=== PATIENT | female | born 1950 | race Caucasian/White ===

== ENCOUNTER → 2017-07-06 | Outpatient (CLI) | payer MEDICARE ==
[~2017-07-06] MED LIST: ACE325 PO; ALB0.5 INH; ASP325 PO; BACDS PO; DAR100 PO; MULT-1335 PO; PHENA100 PO; STEROID INHALER INH; [UNRECOGNIZED DRUG - OTHER] PO
--- NOTE | 2017-07-06 11:53 | EKG ---
FACILITY: [facility] - [place] PATIENT NAME: JEEVAN YANEZ : [id number] MR: [id number] V: [id number] EXAM DATE: ORDERING PHYSICIAN: JOSÉ LUIS WARNER TECHNOLOGIST: GRAHAM Sandoval Reason : J44.9 Blood Pressure : / mmHG Vent. Rate : 088 BPM Atrial Rate : 088 BPM P-R Int : 126 ms QRS Dur : 068 ms QT Int : 350 ms P-R-T Axes : 088 089 083 degrees QTc Int : 423 ms Normal sinus rhythm Normal ECG No previous ECGs available Confirmed by MERCY SEN ([id number]) on 07/06/2017 2:59:41 PM Referred By: Confirmed By:MERCY SEN
--- NOTE | 2017-07-06 12:44 | RADIOLOGY IMAGING REPORT ---
FACILITY: [facility] - [place] PATIENT NAME: Emma Henriquez : 1950 MR: [id number] V: [id number] EXAM DATE: ORDERING PHYSICIAN: JOSÉ LUIS WARNER TECHNOLOGIST: Location: [facility] - [place] Patient: Emma Henriquez : 1950 Visit/Account:[id number] Date of Sevice: 07/06/2017 2 VIEWS CHEST INDICATION: Preop evaluation. History of cough and smoking. COMPARISON: 05/28/2013. FINDINGS: Cardiomediastinal silhouette and pulmonary vessels within normal limits. Emphysematous changes are again present. No focal area of consolidation. There is minimal haziness in the right costophrenic angle region. There is no pneumothorax or pleural effusion. No nodule. Upper abdomen is unremarkable. No acute bony abnormality. IMPRESSION: 1. There is minimal haziness in the right costophrenic angle region of the lungs. This nonspecific an d could be due to atelectasis or early infiltrate. The lungs are otherwise clear. Report Dictated By: Taj Madrigal at 07/06/2017 12:37 PM Report E-Signed By: Taj Madrigal at 07/06/2017 12:40 PM WSN:[id number]
== END ==
LOC: RESP 11:35
PROVIDERS: ATTEND Nurse Practitioner Psychiatric/Mental Health
DX: J44.9 Chronic obstructive pulmonary disease, unspecified (principal)
CPT/HCPCS: 71046; 93005

== ENCOUNTER → 2017-07-24 | Outpatient (CLI) | payer MEDICARE, MEDICAID ==
[~2017-07-24] MED LIST changes: +ALB18R INH; +BUDE10.2 INH; +CETI-184 PO; +FEXO-67 PO; +GABA-549 PO; +LISI5TAB25 PO; +MELO-205 PO; +MIRT7.5T2 PO; +MONT10TA PO
== END ==
LOC: RESP 01:15
PROVIDERS: ATTEND Nurse Practitioner Psychiatric/Mental Health
DX: J98.4 Other disorders of lung (principal)
CPT/HCPCS: 94060; 94726; 94729

== ENCOUNTER → 2018-04-11 | Outpatient (CLI) | payer MEDICARE, MEDICAID ==
--- NOTE | 2018-04-11 13:20 | RADIOLOGY IMAGING REPORT ---
FACILITY: [facility] PATIENT NAME: Emma Henriquez : 1950 MR: [id number] V: [id number] EXAM DATE: ORDERING PHYSICIAN: JOSÉ LUIS WARNER TECHNOLOGIST: Location: [facility] Patient: Emma Henriquez : 1950 Visit/Account:[id number] Date of Sevice: 04/11/2018 CT CHEST W/O CONTRAST History: Shortness of breath, worse on oxygen at night TECHNIQUE: Contiguous axial images were performed through the chest to the level of the adrenal gla nds. No IV contrast was administered. Coronal and sagittal reformatting was also performed.Dose Lower ing Technique One of the following dose optimization techniques was utilized in the performance of this exam: Autom ated exposure control; adjustment of the mA and/or kV according to the patient's size; or use of an i terative reconstruction technique. Specific details can be referenced in the facility's radiology C T exam operational policy. COMPARISON STUDIES: Two-view chest July 06, 2017. Lungs / Pleura: There is moderate diffuse centrilobular emphysema throughout the lungs and mild meir ear stranding the lung bases likely represents scarring. There is mild thickening versus retained secretions along the anterior and posterior gibson of the bro nchus intermedius There is no evidence of pulmonary nodules are focal infiltrates or pleural effusions. Mediastinum/nodes: There are small mediastinal lymph nodes present although none appear pathological ly enlarged by size criteria Heart and vessels: There moderate atherosclerotic calcifications of the thoracic aorta and branch ve ssels Musculoskeletal / Body wall: There is an S-shaped scoliosis of the thoracic spine with moderate spo ndylotic changes there is a mild compression fracture of the T9 vertebral body Upper abdomen: Visualized abdominal viscera negative. IMPRESSION: There moderate diffuse central and emphysematous changes throughout the lungs. Mild scarring in the lung bases. There is mild thickening versus retained secretions along the anterior and posterior gibson of the bro nchus intermedius. Clinical correlation needed Moderate atherosclerotic disease S-shaped scoliosis of the thoracic spine with moderate spondylotic changes and a mild compression fra cture of T9 Report Dictated By: Leah Marshall MD at 04/11/2018 1:04 PM Report E-Signed By: Leah Marshall MD at 04/11/2018 1:14 PM WSN:[email or web address]
== END ==
LOC: CT 00:59
PROVIDERS: ATTEND Nurse Practitioner Psychiatric/Mental Health
DX: J43.9 Emphysema, unspecified (principal); I25.10 Atherosclerotic heart disease of native coronary artery without angina pectoris
CPT/HCPCS: 71250

== ENCOUNTER 2018-06-02 14:35 | Inpatient (IN) | payer MEDICARE, MEDICAID ==
[~2018-06-02] VITALS: Ht 144.8 cm; Wt 32.2 kg
[2018-06-02] VITALS (14 sets, daily range): BP systolic 81–135; BP diastolic 60–87
[~2018-06-02 14:35] MED LIST changes: -CYCL-277 PO; -FLUO-176 PO
[2018-06-02] MEDS ORDERED: NS(*) 0.9% 1000 ML BAG 1,000 ML IV ONE (14:38)
[2018-06-02] MEDS ORDERED: ALBUTEROL/IPRATROPIUM 3 ML NEB NEB ONE (14:40)
[2018-06-02] MEDS ORDERED: methylPREDNIS SUCC 125 MG/2ML IVP ONE (14:40)
--- NOTE | 2018-06-02 14:44 | ER Report ---
History and Physical Time Seen By MD: 14:35 HPI/ROS CHIEF COMPLAINT: Shortness of breath HISTORY OF PRESENT ILLNESS: 67-year-old female patient presents to emergency room with complaint of shortness of breath. Patient states this been going on for the past week. She states that shortness of breath has seemed to be getting worse over that time period. She states that she has not had much of an appetite. She states she still is smoking, is unable to smoke a few cigarettes a day. Patient denies any nausea, vomiting or diarrhea, however she states that she's not had much of an appetite for the past week. Patient states she does have some abdominal pain. She states she is not taking any medication for this. REVIEW OF SYSTEMS: Respiratory: As noted above Cardiovascular: No chest pain, no palpitations. Gastrointestinal: As noted above Musculoskeletal: No back pain. Allergies: Coded Allergies: Codeine (Verified Allergy, Intermediate, NAUSEA, VOMITING, ITHCHING, HIVES, 10/02/09) Hydrocodone (Verified Allergy, Intermediate, NAUSEA, VOMITING, ITCHING, HIVES, 10/02/09) Mold Extracts (Verified Allergy, Intermediate, 10/02/09) Oxycodone (Verified Allergy, Intermediate, NAUSEA, VOMITING, ITCHING, HIVES, 10/02/09) Penicillin G (Verified Allergy, Intermediate, NAUSEA, VOMITING, ITCHING, D IZZINESS, 10/02/09) Levofloxacin (Verified Allergy, Mild, NAUSEA AND ITCHING, 10/02/09) Home Meds Reported Medications Fluoxetine Hcl (FLUOXETINE HCL) 10 Mg Capsule, 1 CAP PO DAILY 06/02/18 Gabapentin (GABAPENTIN) 300 Mg Capsule, 100 MG PO TID, CAPSULE 07/26/17 Meloxicam (MELOXICAM) 7.5 Mg Tablet, 7.5 MG PO QDAY 07/26/17 Albuterol Sulfate (VENTOLIN HFA) 18 Gm Inh, 2 PUFF INH QID, INH 07/26/17 Budesonide/Formoterol Fumarate (SYMBICORT 160-4.5 MCG INHALER) 10.2 Gm Inh, 10.2 GM INH BID, INH 07/26/17 Mirtazapine (MIRTAZAPINE) 7.5 Mg Tablet, 7.5 MG PO 07/26/17 Lisinopril (LISINOPRIL) 5 Mg Tablet, 5 MG PO QDAY, TAB 07/26/17 Fexofenadine Hcl (NICOLÁS ALLERGY) 180 Mg Tablet, 180 MG PO QDAY 07/26/17 Cetirizine Hcl (CETIRIZINE HCL) 10 Mg Tab.chew, 10 MG PO QDAY, TAB.CHEW 07/26/17 Montelukast Sodium (SINGULAIR) 10 Mg Tablet, 1 TAB PO QDAY, TAB 07/26/17 Multivitamins W-Minerals (Multiple Vitamin) 1 Tab Tablet, 1 TAB PO DAILY, 0 Refills 10/02/09 Albuterol Sulfate (Albuterol Inh Conc) 2.5 Mg/0.5 Ml Nebu, 2.5 MG INH 2 PUFFS QID, 0 Refills DILUTE BEFORE USING 10/02/09 Acetaminophen (Tylenol) 325 Mg Tab, 650 MG PO BID, 0 Refills 10/02/09 Discontinued Reported Medications Aspirin (Aspirin) 325 Mg Tab, 325 MG PO BID, 0 Refills 10/02/09 Past Medical/Surgical History Patient has a past medical history of bone spurs on neck, migraine, irregular heartbeat, hypertension, asthma, emphysema, COPD, left lower quadrant abdominal pain, urinary incontinence, arthritis, fractures, back pain, bruises easily, alcohol use, weight loss, depression. Patient has a surgical history of hysterectomy, back surgery 2, carpal tunnel release on the right, lumbar fusion. Reviewed Nurses Notes: Yes Hx Smoking: Yes (SMOKES 1 AND 1/2 PACKS CIGARETTES PER DAY) Constitutional Vital Sign - Last 24 Hours 06/02/18 06/02/18 06/02/18 06/02/18 14:31 14:35 14:37 14:50 Temp 99.3 Pulse 135 142 135 Resp 20 29 B/P (MAP) 140/103 140/103 (115) Pulse Ox 90 90 O2 Delivery Nasal Cannula 06/02/18 06/02/18 06/02/18 06/02/18 15:00 15:05 15:15 15:15 Pulse 141 121 Resp 24 26 B/P (MAP) 139/101 (114) Pulse Ox 89 91 O2 Delivery Nasal Cannula O2 Flow Rate 2.0 06/02/18 06/02/18 06/02/18 06/02/18 15:20 15:30 15:35 15:50 Pulse 131 130 133 Resp 18 18 24 B/P (MAP) 151/100 (117) Pulse Ox 96 83 83 06/02/18 06/02/18 06/02/18 06/02/18 16:00 16:04 16:05 16:20 Pulse 147 146 Resp 32 37 B/P (MAP) 211/138 (162) Pulse Ox 95 96 O2 Flow Rate 3.0 06/02/18 16:23 B/P (MAP) 117/80 (92) Physical Exam General Appearance: The patient is alert, has no immediate need for airway protection and no current signs of toxicity. Respiratory: Chest is non tender, lungs are diminished to auscultation. Cardiac: regular rate and rhythm Gastrointestinal: Abdomen is soft and generalized tenderness, no masses, bowel sounds normal. Musculoskeletal: Neck: Neck is supple and non tender. Extremities have full range of motion and are non tender. Skin: No rashes or lesions. DIFFERENTIAL DIAGNOSIS: After history and physical exam differential diagnosis was considered for shortness of breath including but not limited to pulmonary infectious process, COPD, asthma, pulmonary embolus and congestive heart failure. Medical Decision Making Data Points Result Diagram: 06/02/18 1508 06/02/18 1508 Laboratory Hematology Test 06/02/18 14:38 06/02/18 15:08 06/02/18 17:34 Blood Gas Puncture Site Right radial Blood Gas Patient Temperature 99.3 DEGREES Arterial Blood pH 7.38 (7.35-7.45) Arterial Blood Partial Pressure CO2 33 mmHg (32-37) Arterial Blood Partial Pressure O2 62 mmHg (60-80) Arterial Blood HCO3 20 mmol/L (20-26) Arterial Blood Oxygen Saturation 91 % (92-100) Arterial Blood Base Excess -6.0 mmol/L Carlos Test Acceptable Oxygen Liters/Minute 29 Red Blood Count 5.09 M/uL (4.17-5.56) Mean Corpuscular Volume 95.2 fL (80.0-96.0) Mean Corpuscular Hemoglobin 33.1 pg (26.0-33.0) Mean Corpuscular Hemoglobin Concent 34.8 g/dL (32.0-36.0) Red Cell Distribution Width 13.4 % (11.5-14.5) Mean Platelet Volume 7.4 fL (7.2-11.1) Neutrophils (%) (Auto) 86.1 % (39.4-72.5) Lymphocytes (%) (Auto) 3.3 % (17.6-49.6) Monocytes (%) (Auto) 10.4 % (4.1-12.4) Eosinophils (%) (Auto) 0.0 % (0.4-6.7) Basophils (%) (Auto) 0.2 % (0.3-1.4) Nucleated RBC Relative Count (auto) 0.1 /100WBC Neutrophils # (Auto) 9.1 K/uL (2.0-7.4) Lymphocytes # (Auto) 0.3 K/uL (1.3-3.6) Monocytes # (Auto) 1.1 K/uL (0.3-1.0) Eosinophils # (Auto) 0.0 K/uL (0.0-0.5) Basophils # (Auto) 0.0 K/uL (0.0-0.1) Nucleated RBC Absolute Count (auto) 0.01 K/uL Sodium Level 128 mmol/L (137-145) Potassium Level 4.4 mmol/L (3.5-5.0) Chloride Level 94 mmol/L (98-107) Carbon Dioxide Level 21 mmol/L (22-31) Blood Urea Nitrogen 12 mg/dl (7-18) Creatinine 0.40 mg/dl (0.52-1.04) Glomerular Filtration Rate Calc > 60.0 Random Glucose 100 mg/dl (75-110) Lactate 1.1 mmol/L (0.7-2.1) Calcium Level 9.7 mg/dl (8.4-10.2) Total Bilirubin 1.0 mg/dl (0.2-1.3) Aspartate Amino Transf (AST/SGOT) 36 U/L (0-35) Alanine Aminotransferase (ALT/SGPT) 41 U/L (0-56) Alkaline Phosphatase 81 U/L (0-126) B-Type Natriuretic Peptide 297 pg/ml (0-100) Total Protein 7.3 g/dl (6.3-8.2) Albumin 4.4 g/dl (3.5-5.0) Troponin I 0.074 ng/ml Chemistry Test 06/02/18 14:38 06/02/18 15:08 06/02/18 17:34 Blood Gas Puncture Site Right radial Blood Gas Patient Temperature 99.3 DEGREES Arterial Blood pH 7.38 (7.35-7.45) Arterial Blood Partial Pressure CO2 33 mmHg (32-37) Arterial Blood Partial Pressure O2 62 mmHg (60-80) Arterial Blood HCO3 20 mmol/L (20-26) Arterial Blood Oxygen Saturation 91 % (92-100) Arterial Blood Base Excess -6.0 mmol/L Carlos Test Acceptable Oxygen Liters/Minute 29 White Blood Count 10.6 k/uL (4.5-11.0) Red Blood Count 5.09 M/uL (4.17-5.56) Hemoglobin 16.8 g/dL (12.0-16.0) Hematocrit 48.4 % (34.0-47.0) Mean Corpuscular Volume 95.2 fL (80.0-96.0) Mean Corpuscular Hemoglobin 33.1 pg (26.0-33.0) Mean Corpuscular Hemoglobin Concent 34.8 g/dL (32.0-36.0) Red Cell Distribution Width 13.4 % (11.5-14.5) Platelet Count 201 K/uL (150-450) Mean Platelet Volume 7.4 fL (7.2-11.1) Neutrophils (%) (Auto) 86.1 % (39.4-72.5) Lymphocytes (%) (Auto) 3.3 % (17.6-49.6) Monocytes (%) (Auto) 10.4 % (4.1-12.4) Eosinophils (%) (Auto) 0.0 % (0.4-6.7) Basophils (%) (Auto) 0.2 % (0.3-1.4) Nucleated RBC Relative Count (auto) 0.1 /100WBC Neutrophils # (Auto) 9.1 K/uL (2.0-7.4) Lymphocytes # (Auto) 0.3 K/uL (1.3-3.6) Monocytes # (Auto) 1.1 K/uL (0.3-1.0) Eosinophils # (Auto) 0.0 K/uL (0.0-0.5) Basophils # (Auto) 0.0 K/uL (0.0-0.1) Nucleated RBC Absolute Count (auto) 0.01 K/uL Glomerular Filtration Rate Calc > 60.0 Lactate 1.1 mmol/L (0.7-2.1) Calcium Level 9.7 mg/dl (8.4-10.2) Total Bilirubin 1.0 mg/dl (0.2-1.3) Aspartate Amino Transf (AST/SGOT) 36 U/L (0-35) Alanine Aminotransferase (ALT/SGPT) 41 U/L (0-56) Alkaline Phosphatase 81 U/L (0-126) B-Type Natriuretic Peptide 297 pg/ml (0-100) Total Protein 7.3 g/dl (6.3-8.2) Albumin 4.4 g/dl (3.5-5.0) Troponin I 0.074 ng/ml Microbiology Microbiology Date/Time Source Procedure Growth Status 06/02/18 17:17 Sputum Gram Stain - Final Resulted 06/02/18 17:17 Sputum Sputum Culture Pending Resulted EKG/Imaging EKG Interpretation 12 lead EKG: Rhythm: Sinus tachycardia Vesper: normal QRS: normal ST segments: Nonspecific ST abnormality Imaging Examination: CHEST SINGLE AP Comparison: 04/11/2018 and earlier. History: shortness of breath Findings: Chronic pulmonary hyperexpansion and interstitial thickening. No new or enlarging consolidation, nodule, or definite evidence of acute peribronchial inflammation. No pneumothorax, edema, or effusion. Cardiac silhouette size is within normal limits. Tortuous and atherosclerotic aorta as before. Osseous structures are intact. IMPRESSION: Chronic changes with no evidence of superimposed acute cardiopulmonary disease. Report Dictated By: Bhupinder Valentin MD at 06/02/2018 4:21 PM Report E-Signed By: Bhupinder Valentin MD at 06/02/2018 4:23 PM ED Course/Re-evaluation ED Course Patient was medicated exam room, history and physical were obtained. Differential diagnoses were considered. On examination lungs are very diminished with expiratory wheezes. An EKG, chest x-ray, CBC, CMP, troponin were done. With patient having start time breathing a ABG was also performed. Lab results were unremarkable. Patient had a normal white count, troponin was indeterminate at 0.055. Chest x-ray showed no acute cardiopulmonary processes. We did do an extended nebulizer using DuoNeb over 40 minutes. Resting the bath patient became very anxious, stating that she did not feel that she could breathe with the mask on. Patient received a 1 mg dose of Ativan at that time. Patient did calm down relaxer was able to fall asleep. Patient was placed on in tidal CO2 to continue to monitor that. She maintained between 25 and 30 on that. I discussed the case with Dr. Ledy Mcmullen, hospitalist, who wanted a repeat troponin before decid ing whether to admit to the hospital. She did come down to the emergency room and evaluated the patient here. The repeat troponin was 0.074. I discussed this with Dr. Mcmullen who agreed to accept the patient for admission. Patient will be admitted to ICU for close monitoring. I discussed this with the patient's family, Amrik Tavarez . He states that he is the patient's power of insurance defense attorney and he also mentioned that he did not feel the patient would want to be intubated. I did discuss this with Dr. Mcmullen. Decision to Disposition Date: Jun 02, 2018 Decision to Disposition Time: 18:14 Depart Departure Latest Vital Signs Vital Signs Date Time Temp Pulse Resp B/P (MAP) Pulse Ox O2 Delivery O2 Flow Rate FiO2 06/02/18 16:23 117/80 (92) 06/02/18 16:20 146 37 96 06/02/18 16:04 3.0 06/02/18 15:15 Nasal Cannula 06/02/18 14:31 99.3 Impression: Primary Impression: COPD exacerbation Condition: Condition Unchanged Disposition: Admitted from ER Referrals: JOSÉ LUIS WARNER (PCP) SIER[facility] SINGLETARY Jun 02, 2018 14:44
--- NOTE | 2018-06-02 15:04 | EKG ---
FACILITY: [facility] PATIENT NAME: JEEVAN YANEZ : [id number] MR: [id number] V: [id number] EXAM DATE: ORDERING PHYSICIAN: SIERRA SINGLETARY TECHNOLOGIST: GRAHAM Sandoval Reason : RESPIRATORY Blood Pressure : / mmHG Vent. Rate : 133 BPM Atrial Rate : 066 BPM P-R Int : 000 ms QRS Dur : 068 ms QT Int : 386 ms P-R-T Axes : 000 248 084 degrees QTc Int : 574 ms Supraventricular tachycardia Nonspecific ST and T wave abnormality Abnormal ECG Confirmed by CESIA BALTAZAR ([id number]) on 06/02/2018 3:56:30 PM Referred By: Confirmed By:CESIA BALTAZAR
[2018-06-02 15:22] LABS: PLATELET COUNT, AUTOMATED 201 K/uL (150-450)
[2018-06-02] MEDS ORDERED: LORazepam 2 MG/ML VIAL IVP ONE (15:50)
[2018-06-02] MEDS ORDERED: AZITHROMYCIN(*) 500 MG 500 MG in NS(*) 0.9% 250 ML BAG 250 ML IVPB ONE (16:15)
--- NOTE | 2018-06-02 16:27 | RADIOLOGY IMAGING REPORT ---
FACILITY: [facility] PATIENT NAME: Emma Henriquez : 1950 MR: [id number] V: [id number] EXAM DATE: ORDERING PHYSICIAN: SIERRA SINGLETARY TECHNOLOGIST: Location: [facility] Patient: Emma Henriquez : 1950 Visit/Account:[id number] Date of Sevice: 06/02/2018 Examination: CHEST SINGLE AP Comparison: 04/11/2018 and earlier. History: shortness of breath Findings: Chronic pulmonary hyperexpansion and interstitial thickening. No new or enlarging consolida tion, nodule, or definite evidence of acute peribronchial inflammation. No pneumothorax, edema, or ef fusion. Cardiac silhouette size is within normal limits. Tortuous and atherosclerotic aorta as before . Osseous structures are intact. IMPRESSION: Chronic changes with no evidence of superimposed acute cardiopulmonary disease. Report Dictated By: Bhupinder Valentin MD at 06/02/2018 4:21 PM Report E-Signed By: Bhupinder Valentin MD at 06/02/2018 4:23 PM WSN:[id number]
[2018-06-02] MEDS ORDERED: FLUO-176 PO (17:36)
[2018-06-02] MEDS ORDERED: cefTRIAXone(*) 1 GM VIAL 1 GM in NS(*) 0.9% 100 ML MINI-BAG 100 ML IVPB ONE (17:50)
[2018-06-02] MEDS ORDERED: ALBUTEROL 2.5 MG/3 ML NEB NEB PRN (20:00)
[2018-06-02] MEDS: NS(*) 0.9% 1000 ML BAG 1,000 ML IV PRN (20:42)
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
[2018-06-02] MEDS: methylPREDNIS SUCC 125 MG/2ML IVP SCH (20:49)
[2018-06-02] MEDS ORDERED: CYCL-277 PO (21:00)
[2018-06-02] MEDS: MONTELUKAST SODIUM 10 MG TAB PO SCH (21:26)
[2018-06-02] MEDS: GABAPENTIN 300 MG CAP PO SCH (21:26)
[2018-06-02] MEDS: ALBUTEROL/IPRATROPIUM 3 ML NEB NEB SCH (23:55)
[2018-06-03] VITALS (42 sets, daily range): BP systolic 85–150; BP diastolic 60–101; Ht 144.8 cm; Wt 32.2 kg
[2018-06-03] MEDS: methylPREDNIS SUCC 125 MG/2ML IVP SCH ×4 (02:15→20:47)
[2018-06-03] MEDS: NS(*) 0.9% 1000 ML BAG 1,000 ML IV PRN ×2 (04:07→20:48)
[2018-06-03 04:51] LABS: PLATELET COUNT, AUTOMATED 154 K/uL (150-450)
[2018-06-03] MEDS: ALBUTEROL/IPRATROPIUM 3 ML NEB NEB SCH (06:04)
[2018-06-03] MEDS ORDERED: LEVALBUTEROL 0.63 MG/3 ML NEB NEB PRN (07:45)
--- NOTE | 2018-06-03 08:01 | Hospitalist Progress Note ---
Subjective Progress Notes Subjective She reports feeling "a little better" as compared to yesterday. Physical Exam Vital Signs Date Time Temp Pulse Resp B/P (MAP) Pulse Ox O2 Delivery O2 Flow Rate FiO2 06/03/18 06:30 114 18 106/70 (82) 90 Oxy Mask 4.0 06/03/18 05:00 99.5 Intake and Output 06/03/18 07:00 Intake Total 961 ml Output Total 690 ml Balance 271 ml Intake Oral 100 ml IV Total 861 ml Output Urine Total 690 ml General Appearance: Alert, Awake Cardiovascular: No Edema, Other (Regular slightly tachycardic with distant tones) Respiratory: Other (greatly diminished breath sounds bilaterally with prolonged expiratory phase) GI: Soft and Non-Tender Extremities: Warm, Perfused Integumentary: Generalized Fragile Skin Psych: Alert & Oriented X3 Result Diagram: 06/03/1844206/03/18442 Assessment and Plan Problems: (1) COPD exacerbation Status: Acute Assessment & Plan: Currently on IV azithromycin, ceftriaxone, Solu-Medrol. Will switch from Duo-Neb and Albuterol to Xoepnex as she has some persistent tachycardia. Continue supplemental oxygen as well. She has shown some slight improvements. Based on previous PFTs and CXR, she has quite advanced/severe COPD. (2) Depression Status: Chronic Assessment & Plan: She filled an RX for fluoxetine, but states she does not take it. (3) History of lumbar fusion Status: Resolved Assessment & Plan: She has some chronic back pain related to this and uses low dose Flexeril. Exam Sepsis Risk: Sepsis Risk CATALINA MISTRY MD Jun 03, 2018 08:01
[2018-06-03] MEDS: ENOXAPARIN 30 MG/0.3 ML SYR SC SCH (09:01)
[2018-06-03] MEDS: FEXOFENADINE HCL 60 MG TAB PO SCH (09:01)
[2018-06-03] MEDS: LEVALBUTEROL 0.63 MG/3 ML NEB NEB SCH ×3 (09:06→19:27)
[2018-06-03] MEDS: guaiFENesin SYRP 100MG/5ML UDC PO SCH ×4 (09:08→20:46)
[2018-06-03] MEDS: ACETAMINOPHEN 325 MG TAB PO PRN ×2 (11:08→20:49)
[2018-06-03] MEDS: CYCLOBENZAPRINE HCL 10 MG TAB PO SCH (13:28)
[2018-06-03] MEDS: AZITHROMYCIN(*) 500 MG 500 MG in NS(*) 0.9% 250 ML BAG 250 ML IVPB SCH (16:47)
[2018-06-03] MEDS ORDERED: cefTRIAXone(*) 1 GM VIAL 1 GM in NS(*) 0.9% 100 ML MINI-BAG 100 ML IVPB SCH (18:00)
[2018-06-03] MEDS: CETIRIZINE HCL 10 MG TAB PO SCH (20:46)
[2018-06-03] MEDS: GABAPENTIN 300 MG CAP PO SCH (20:46)
[2018-06-03] MEDS: MONTELUKAST SODIUM 10 MG TAB PO SCH (20:46)
[2018-06-04] VITALS (16 sets, daily range): BP systolic 107–179; BP diastolic 76–122
[2018-06-04] MEDS: methylPREDNIS SUCC 125 MG/2ML IVP SCH (02:58)
[2018-06-04 05:06] LABS: PLATELET COUNT, AUTOMATED 140 K/uL (150-450)
[2018-06-04] MEDS: LEVALBUTEROL 0.63 MG/3 ML NEB NEB SCH (06:00)
[2018-06-04] MEDS: PROMETHAZINE 25 MG/ML 1 ML AMP IVP PRN (06:48)
[2018-06-04] MEDS ORDERED: ALBUTEROL/IPRATROPIUM 3 ML NEB NEB PRN (08:05)
[2018-06-04] MEDS ORDERED: LEVALBUTEROL 0.63 MG/3 ML NEB NEB PRN (08:35)
[2018-06-04] MEDS ORDERED: LEVALBUTEROL 1.25 MG/3 ML NEB NEB PRN ×2 (08:40)
[2018-06-04] MEDS ORDERED: predniSONE 20 MG TAB PO SCH (09:00)
[2018-06-04] MEDS: FEXOFENADINE HCL 60 MG TAB PO SCH (09:02)
[2018-06-04] MEDS: guaiFENesin SYRP 100MG/5ML UDC PO SCH ×4 (09:03→21:10)
[2018-06-04] MEDS: ENOXAPARIN 30 MG/0.3 ML SYR SC SCH (09:04)
--- NOTE | 2018-06-04 09:22 | NUR ---
Physical Therapy Impression PT/OT co eval complete. Pt with difficulty breathing throughout session, pt's daughter present and reports that pt lives alone in [place]. Pt sitting on BSC when PT/OT arrived with RN assistance. Pt reports shortness of breath, requesting to return to bed. SpO2 WNL. Pt required modA x2 for pivot transfer from [facility] with RW. Pt demonstrates LE buckling during transfer. SBA for sit to supine transfer. Recommendation pending progress. RN with pt at end of session. Physical Therapy Goals 1: Pt to complete bed mobility with Jana 2: Pt to cmplete transfers with Jana and appropriate AD 3: Pt to ambulate 100' with Jana and appropriate AD 4: Pt asc/desc 1 stair with Jana and appropriate AD Patient's Goals
[2018-06-04] MEDS: BUDESO/FORMOT 160/4.5 MCG 6 GM INH SCH ×2 (09:30→16:56)
[2018-06-04] MEDS: LEVALBUTEROL 1.25 MG/3 ML NEB NEB SCH ×3 (09:35→16:56)
[2018-06-04] MEDS ORDERED: LORazepam 2 MG/ML VIAL IVP ONE (09:45)
--- NOTE | 2018-06-04 09:50 | NUR ---
Occupational Therapy Impression Pt on BSC upon OT/PT arrival. Requesting return to bed due to pt report of difficulty breathing. Mod Ax2 stand pivot BCS to bed. SpO2 WNL on 3L. Pt seated upright in bed at end of tx. Nursing present and awaiting respiratory therapist. Pt will benefit from skilled OT services to improve tolerance for ADLs and engage in energy conservation education. Recommendation for discharge pending progress. Occupational Therapy Goals 1) Pt will be SBA UB/LB dressing. 2) Pt will be SBA grooming/hygiene seated. 3) Pt will be SBA toilet task. 4) Pt will be educated on appropriate energy conservation techniques. Patient's Goal
[2018-06-04] MEDS ORDERED: LEVALBUTEROL 0.63 MG/3 ML NEB NEB SCH (10:00)
[2018-06-04] MEDS: NS(*) 0.9% 1000 ML BAG 1,000 ML IV PRN (11:59)
--- NOTE | 2018-06-04 11:59 | Antimicrobial Stewardship ---
Antimicrobial Stewardship Empiricly appropriate: Yes (Azithromycin and Ceftriaxone) Significant PMH: Yes (COPD) Support empiric regimen: Yes Approriate Cultures done: Yes (Blood Cx x 2 -- 1 of 4 bottles with G+ cocci) Determine cumulative duration: 06/04/18 - Day 3 of antibiotics Determine standard duration: 5-7 days COPD Exacerbation Comment 67 yo F with migraines, COPD/emphysema, HTN, asthma, and irregular heartbeat who presented with SOB x 1 week, no appetite, and is currently still smoking. Tmax 99.5 WBC 10.6-->7.1 HR 120-130s BP 170/120s Bipap with 305 FIO2 Scr 0.4 Sputum: G+ cocci (moderate) G- rods (few) WBC many Blood Cx x 2 --> G+ cocci (aerobic) 1 of 4 bottles ( likely contaminant) Chest Xray - (-) for acute cardiopulmonary process, chronic lung disease Started on Azithromycin + Ceftriaxone Plan stop ceftriaxone (no infiltrates), COPD exacerbation, continue azithromycin. Today is day 3 of therapy (started on 06/02). Blood culture is a contaminant. Will follow closely and watch labs and cultures. Switch to oral azithromycin starting tomorrow if pt continues to improve. Leticia Parada, PharmD, BCOP LETICIA PARADA Jun 04, 2018 11:59
--- NOTE | 2018-06-04 13:50 | Hospitalist Progress Note ---
Subjective Progress Notes Subjective F admitted for acute on chronic hypoxic respiratory failure. ADRIAN overnight, some tachypnea this am but no decrease in O2 sat. appears to be anxiety. Patient Complains of: Respiratory: Cough; No: Congestion Physical Exam Vital Signs Date Time Temp Pulse Resp B/P (MAP) Pulse Ox O2 Delivery O2 Flow Rate FiO2 06/04/18 13:28 93 18 06/04/18 13:19 94 Bi-PAP 30.0 06/04/18 12:00 96.8 107/77 (87) 06/04/18 10:00 3.0 Intake and Output 06/04/18 07:00 Intake Total 1891 ml Output Total 845 ml Balance 1046 ml Intake Oral 340 ml IV Total 1551 ml Output Urine Total 845 ml General Appearance: Alert, Awake, No Acute Distress, Afebrile Neuro: No Gross deficits ENT: Normal Cardiovascular: Normal Rhythm & Peripheral Pulses Respiratory: No Respiratory Distress (greatly diminished.) GI: Soft and Non-Tender Extremities: Soft and Non Tender, Warm, Pulses, Perfused Result Diagram: 06/04/1845006/04/18450 Assessment and Plan Problems: (1) Acute on chronic respiratory failure with hypoxia Assessment & Plan: Due to exacerbation of chronic COPD. Slowly improving, baseline 2L. (2) COPD exacerbation Status: Acute Assessment & Plan: Currently on IV azithromycin, transitioned to PO prednisone, breathing treatments. Continue supplemental oxygen as well. She has shown some slight improvements. Based on previous PFTs and CXR, she has quite advanced/severe COPD. (3) Depression Status: Chronic Assessment & Plan: She filled an RX for fluoxetine, but states she does not take it. (4) History of lumbar fusion Status: Resolved Assessment & Plan: She has some chronic back pain related to this and uses low dose Flexeril. Exam Sepsis Risk: No Definite Risk MAC ANTONI MEEK DO Jun 04, 2018 13:50
[2018-06-04] MEDS: CYCLOBENZAPRINE HCL 10 MG TAB PO SCH (15:51)
[2018-06-04] MEDS: AZITHROMYCIN(*) 500 MG 500 MG in NS(*) 0.9% 250 ML BAG 250 ML IVPB SCH (17:23)
[2018-06-04] MEDS ORDERED: INFLUENZA VIRUS VAC 0.5ML SYR IM ONLY ONE (19:55)
[2018-06-04] MEDS: CETIRIZINE HCL 10 MG TAB PO SCH (21:10)
[2018-06-04] MEDS: MONTELUKAST SODIUM 10 MG TAB PO SCH (21:10)
[2018-06-04] MEDS: GABAPENTIN 300 MG CAP PO SCH (21:10)
[2018-06-04] MEDS: LORazepam 2 MG/ML VIAL IVP PRN (21:14)
[2018-06-05] MEDS: NS(*) 0.9% 1000 ML BAG 1,000 ML IV PRN (04:07)
[2018-06-05] MEDS: LORazepam 2 MG/ML VIAL IVP PRN (04:11)
[2018-06-05 04:15] VITALS: BP 177/107
[2018-06-05] MEDS: BUDESO/FORMOT 160/4.5 MCG 6 GM INH SCH ×3 (04:40→17:18)
[2018-06-05] MEDS: LEVALBUTEROL 1.25 MG/3 ML NEB NEB SCH ×3 (04:40→17:01)
[2018-06-05] MEDS ORDERED: LORazepam 2 MG/ML VIAL IVP ONE ×3 (05:10→17:30)
[2018-06-05 06:59] VITALS: BP 136/91
[2018-06-05] MEDS ORDERED: LEVALBUTEROL 1.25 MG/3 ML NEB NEB PRN (09:05)
--- NOTE | 2018-06-05 09:42 | EKG ---
FACILITY: [facility] PATIENT NAME: JEEVAN YANEZ : [id number] MR: [id number] V: [id number] EXAM DATE: ORDERING PHYSICIAN: YUKI DALAL TECHNOLOGIST: MAGALY Sandoval Reason : TACHYCARDIA Blood Pressure : / mmHG Vent. Rate : 118 BPM Atrial Rate : 118 BPM P-R Int : 146 ms QRS Dur : 068 ms QT Int : 332 ms P-R-T Axes : 087 081 081 degrees QTc Int : 465 ms Sinus tachycardia Right atrial enlargement T flattening/inversion consistent with lateral ischemia vs normal variant When compared with ECG of 02-JUN-2018 14:46, Questionable change in QRS axis Nonspecific T wave abnormality no longer evident in inferior leads Confirmed by YUKI DALAL ([id number]) on 06/06/2018 12:07:48 AM Referred By: Confirmed By:YUKI DALAL
[2018-06-05] MEDS ORDERED: LOPERAMIDE HCL 2 MG CAP PO PRN (10:00)
[2018-06-05] MEDS ORDERED: FUROSEMIDE 20 MG/2 ML VIAL IVP ONE (10:00)
[2018-06-05] MEDS: guaiFENesin SYRP 100MG/5ML UDC PO SCH ×2 (10:12→14:52)
[2018-06-05] MEDS: FEXOFENADINE HCL 60 MG TAB PO SCH (10:12)
[2018-06-05] MEDS: POTASSIUM CHL 10 MEQ TABCR PO SCH ×2 (10:13→16:47)
[2018-06-05] MEDS: ENOXAPARIN 30 MG/0.3 ML SYR SC SCH (10:13)
[2018-06-05] MEDS: ACETAMINOPHEN 325 MG TAB PO PRN ×2 (10:13→16:48)
[2018-06-05] MEDS: predniSONE 20 MG TAB PO SCH (10:13)
[2018-06-05] MEDS: KCL (*) 20 MEQ/100 ML PREMIX 100 ML IV SCH ×2 (10:31→12:42)
[2018-06-05] MEDS: LACTOBACILLUS ACIDOPHILUS TAB PO SCH ×2 (14:52→16:48)
[2018-06-05] MEDS: CYCLOBENZAPRINE HCL 10 MG TAB PO SCH (14:53)
--- NOTE | 2018-06-05 15:41 | NUR ---
Occupational Therapy Impression Pt tolerated sitting EOB [id number] unsupported. Then tolerated standing with CGAx2 and RW x1 minute. SpO2 WNL 4L. V/c's for pursed lip breathing. Pt unable to tolerate conversation throughout tx. If pt elects to return home, recommend further rehab. Occupational Therapy Goals 1) Pt will be SBA UB/LB dressing. 2) Pt will be SBA grooming/hygiene seated. 3) Pt will be SBA toilet task. 4) Pt will be educated on appropriate energy conservation techniques. Patient's Goal
--- NOTE | 2018-06-05 16:06 | NUR ---
Physical Therapy Impression Pt tolerated sitting at EOB x approx 5 minutes with SO2 maintain 86-88% and HR in 120s. Pt able to stand x approx 2 minutes with SO2 decreasing to 84%, thus, Pt returned to supine. Pt will likely need subacute rehab prior to returning to prior living situation. Physical Therapy Goals 1: Pt to complete bed mobility with Jana 2: Pt to cmplete transfers with Jana and appropriate AD 3: Pt to ambulate 100' with Jana and appropriate AD 4: Pt asc/desc 1 stair with Jana and appropriate AD Patient's Goals
--- NOTE | 2018-06-05 16:10 | Hospitalist Progress Note ---
Subjective Progress Notes Subjective She has had a couple "panic attacks" that have required Ativan to help with the symptoms. Overall, slight improvement in her SOB. Physical Exam Vital Signs Date Time Temp Pulse Resp B/P (MAP) Pulse Ox O2 Delivery O2 Flow Rate FiO2 06/05/18 14:56 98.1 116 24 88 Nasal Cannula 4.0 06/05/18 06:59 136/91 (106) 06/05/18 04:41 30.0 Intake and Output 06/05/18 06:59 Intake Total 1765 ml Output Total 2600 ml Balance -835 ml Intake Oral 270 ml IV Total 1495 ml Output Urine Total 2600 ml # Bowel Movements 4 General Appearance: Alert, Awake, Other (mild to moderate wob) Cardiovascular: Other (tachy, regular, no m/r/g) Respiratory: Other (Diffuse exp wheezes. Not moving air to the bases) Result Diagram: 06/04/18 0451 06/05/18 0551 Assessment and Plan Problems: (1) Acute on chronic respiratory failure with hypoxia Assessment & Plan: Due to exacerbation of chronic COPD. Slowly improving, baseline 2L. (2) COPD exacerbation Status: Acute Assessment & Plan: Currently on IV azithromycin, transitioned to PO prednisone, breathing treatments. Continue supplemental oxygen as well. She has shown some slight improvements. Based on previous PFTs and CXR, she has quite advanced/severe COPD. Will give a dose of IV Lasix because she has received over 4 liters of IVF since admission to maximize lung volumes. Saline lock. (3) Anxiety Status: Acute Assessment & Plan: She gets very dyspneic and tachycardic during panic attack events. She apparently gets them at home. She is apparently very reclusive at baseline. She is very anxious about being in the hospital and the strong possibility that she won't be going back to her home after discharge (daughter and son don't think her home is livable). She has been getting prn IV lorazepam during the events. 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 (4) Sinus tachycardia Status: Acute Assessment & Plan: She is in the low 100's for most of this admission. During panic attacks her heart goes up into the 130's. TSH wnl. Will try a dose of metoprolol 5mg IV, if she tolerates it then will start Toprol this evening. Will get an echo tomorrow. (5) Hypokalemia Status: Acute Assessment & Plan: Likely related to breathing treatments and will likely worsen with the IV furosemide. Will give oral and IV dosing of potassium today. BMP/Mg tomorrow. (6) Diarrhea Status: Acute Assessment & Plan: Likely relate to antibiotics. Will do stool studies, start a probiotic and do Imodium prn (7) Depression Status: Chronic Assessment & Plan: She filled an RX for fluoxetine, but states she does not take it. (8) History of lumbar fusion Status: Resolved Assessment & Plan: She has some chronic back pain related to this and uses low dose Flexeril. Exam Sepsis Risk: Sepsis Risk YUKI DALAL MD Jun 05, 2018 16:10
[2018-06-05] MEDS ORDERED: METOPROLOL TART 5 MG/5 ML VIAL IVP ONE (16:15)
[2018-06-05 16:41] VITALS: BP 156/114
[2018-06-05] MEDS: AZITHROMYCIN(*) 500 MG 500 MG in NS(*) 0.9% 250 ML BAG 250 ML IVPB SCH (16:48)
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
[2018-06-05] MEDS ORDERED: LEVALBUTEROL 0.63 MG/3 ML NEB NEB PRN (17:30)
[2018-06-05 19:01] VITALS: BP 154/117
[2018-06-05] MEDS: MONTELUKAST SODIUM 10 MG TAB PO SCH (21:52)
[2018-06-05] MEDS: clonazePAM 0.5 MG TAB PO SCH (21:52)
[2018-06-05] MEDS: CETIRIZINE HCL 10 MG TAB PO SCH (21:52)
[2018-06-05] MEDS: METOPROLOL SUCC XL 25 MG TABCR PO SCH (21:52)
[2018-06-05] MEDS: GABAPENTIN 300 MG CAP PO SCH (21:52)
[2018-06-05 23:59] VITALS: BP 149/91
[2018-06-06] MEDS: ACETAMINOPHEN 325 MG TAB PO PRN ×2 (04:27→11:54)
[2018-06-06] MEDS: BUDESO/FORMOT 160/4.5 MCG 6 GM INH SCH ×2 (05:15→17:00)
[2018-06-06] MEDS: TIOTROPIUM BROM INH 18 MCG/CAP INH SCH (05:15)
[2018-06-06 06:11] LABS: PLATELET COUNT, AUTOMATED 114 K/uL (150-450)
--- NOTE | 2018-06-06 08:06 | NUR ---
ECF Referral - Met with patient and her children. They want her to come to ECF to see if she can get strong enough to go home. Confirmed with PT and OT that they could skill her with rehab services. Explained the function of ECF as short term subacute, rehab philosophy and expectations of the unit. All in agreement. Ms. Henriquez became short of breath, respirations increased to 32 during conversation "I just get so winded". PASRR completed, triggered LT101. LT101 requested to be completed. Will await MD guidance when she is medically appropriate for admission.
[2018-06-06] MEDS: clonazePAM 0.5 MG TAB PO SCH ×2 (09:12→20:44)
[2018-06-06] MEDS: predniSONE 20 MG TAB PO SCH (09:12)
[2018-06-06] MEDS: VENLAFAXINE REG 37.5 MG TAB PO SCH (09:13)
[2018-06-06] MEDS: POTASSIUM CHL 10 MEQ TABCR PO SCH (09:13)
[2018-06-06] MEDS: ENOXAPARIN 30 MG/0.3 ML SYR SC SCH (09:13)
[2018-06-06] MEDS: FEXOFENADINE HCL 60 MG TAB PO SCH (09:13)
[2018-06-06] MEDS: LACTOBACILLUS ACIDOPHILUS TAB PO SCH ×3 (09:13→16:57)
[2018-06-06] MEDS: PROMETHAZINE 25 MG/ML 1 ML AMP IVP PRN (09:14)
[2018-06-06 09:24] VITALS: BP 187/122
--- NOTE | 2018-06-06 10:20 | Hospitalist Progress Note ---
Subjective Progress Notes Subjective This patient was admitted for COPD. She had no acute events overnight. Patient Complains of: Cardiovascular: No: Chest Pain Respiratory: Shortness of Breath Physical Exam Vital Signs Date Time Temp Pulse Resp B/P (MAP) Pulse Ox O2 Delivery O2 Flow Rate FiO2 06/06/18 09:24 97.9 112 20 187/122 (143) 92 Nasal Cannula 4.0 06/05/18 21:32 30.0 Intake and Output 06/06/18 07:00 Intake Total 0 ml Output Total 3300 ml Balance -3300 ml Intake Oral 0 ml Output Urine Total 3300 ml # Voids 1 # Bowel Movements 1 Cardiovascular: Regular Rate and Rhythm Respiratory: Other (Bilateral crackles and accessory muscle breathing.) Result Diagram: 06/06/1843 06/06/18542 Assessment and Plan Problems: (1) COPD exacerbation Status: Acute Assessment & Plan: She is on nebulizers and azithromycin. She is also receiving prednisone, which has been decreased. (2) Acute on chronic respiratory failure with hypoxia Assessment & Plan: She is on increased oxygen. (3) Anxiety Status: Acute Assessment & Plan: She does get anxious with her shortness of breath. Some of this was thought to be related to her beta agonists, which are now only being used as needed. She was also placed on clonazepam and Effexor. (4) Sinus tachycardia Status: Acute Assessment & Plan: She is in the low 100's for most of this admission. During panic attacks her heart goes up into the 130's. TSH wnl. Will try a dose of metoprolol 5mg IV, if she tolerates it then will start Toprol this evening. Will get an echo tomorrow. (5) Hypokalemia Status: Acute Assessment & Plan: Likely related to breathing treatments and will likely worsen with the IV furosemide. Will give oral and IV dosing of potassium today. BMP/Mg tomorrow. (6) Diarrhea Status: Acute Assessment & Plan: Likely relate to antibiotics. Will do stool studies, start a probiotic and do Imodium prn (7) Depression Status: Chronic Assessment & Plan: She filled an RX for fluoxetine, but states she does not take it. (8) History of lumbar fusion Status: Resolved Assessment & Plan: She has some chronic back pain related to this and uses low dose Flexeril. Exam Sepsis Risk: No Definite Risk FRANCYMERCY ARORA DO Jun 06, 2018 10:19
[2018-06-06 11:25] VITALS: BP 182/122
[2018-06-06] MEDS ORDERED: amLODIPine BESYL(*) 2.5 MG TAB PO ONE (11:30)
[2018-06-06] MEDS: CYCLOBENZAPRINE HCL 10 MG TAB PO SCH (13:45)
--- NOTE | 2018-06-06 14:54 | NUR ---
Physical Therapy Impression Attempted PT tx, PT's BP measured at 199/144 via automatic machine and 182/122 manually. PT to hold until BP is appropriate for tx. Physical Therapy Goals 1: Pt to complete bed mobility with Jana 2: Pt to cmplete transfers with Jana and appropriate AD 3: Pt to ambulate 100' with Jana and appropriate AD 4: Pt asc/desc 1 stair with Jana and appropriate AD Patient's Goals
--- NOTE | 2018-06-06 15:15 | NUR ---
Occupational Therapy Impression Attempted OT tx, Pt's BP measured at 199/144 via automatic machine and 182/122 manually. OT to hold until BP is appropriate for tx. Upon 2nd attempt to check in on pt, pt having echo completed. Will follow-up tomorrow. Occupational Therapy Goals 1) Pt will be SBA UB/LB dressing. 2) Pt will be SBA grooming/hygiene seated. 3) Pt will be SBA toilet task. 4) Pt will be educated on appropriate energy conservation techniques. Patient's Goal
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
[2018-06-06 16:04] VITALS: BP_SYST 172; BP_SYST 182; BP_DIAS 120; BP_DIAS 122
[2018-06-06 16:15] VITALS: BP 166/102
[2018-06-06] MEDS: AZITHROMYCIN(*) 500 MG 500 MG in NS(*) 0.9% 250 ML BAG 250 ML IVPB SCH (16:49)
[2018-06-06 19:32] VITALS: BP 156/98
[2018-06-06] MEDS: METOPROLOL SUCC XL 25 MG TABCR PO SCH (20:44)
[2018-06-06] MEDS: CETIRIZINE HCL 10 MG TAB PO SCH (20:44)
[2018-06-06] MEDS: GABAPENTIN 300 MG CAP PO SCH (20:44)
[2018-06-06] MEDS: MONTELUKAST SODIUM 10 MG TAB PO SCH (20:44)
[2018-06-07 02:40] VITALS: BP 146/102
[2018-06-07] MEDS: TIOTROPIUM BROM INH 18 MCG/CAP INH SCH (05:33)
[2018-06-07] MEDS: BUDESO/FORMOT 160/4.5 MCG 6 GM INH SCH ×2 (05:33→17:39)
[2018-06-07 08:21] VITALS: BP 162/96
[2018-06-07] MEDS: clonazePAM 0.5 MG TAB PO SCH ×2 (09:27→21:00)
[2018-06-07] MEDS: amLODIPine BESYL(*) 2.5 MG TAB PO SCH (09:28)
[2018-06-07] MEDS: predniSONE 20 MG TAB PO SCH (09:28)
[2018-06-07] MEDS: LACTOBACILLUS ACIDOPHILUS TAB PO SCH ×3 (09:28→17:23)
[2018-06-07] MEDS: ENOXAPARIN 30 MG/0.3 ML SYR SC SCH (09:29)
[2018-06-07] MEDS: VENLAFAXINE REG 37.5 MG TAB PO SCH (09:32)
[2018-06-07] MEDS: FEXOFENADINE HCL 60 MG TAB PO SCH (09:32)
--- NOTE | 2018-06-07 09:38 | NUR ---
Physical Therapy Impression PT/OT co treat complete, with OT capturing minutes. Pt completed bed mobility with SBA and HOB completely raised. Pivot transfer with RW completed from bed to chair with CGA x2 and pt demonstrating poor control of LEs. Pt will benefit from further subacute rehab prior to d/c. Pt's daughter reports that they are looking for a home in [place] for the pt.SpO2 WNL on 5L throughout. Physical Therapy Goals 1: Pt to complete bed mobility with Jana 2: Pt to cmplete transfers with Jana and appropriate AD 3: Pt to ambulate 100' with Jana and appropriate AD 4: Pt asc/desc 1 stair with Jana and appropriate AD Patient's Goals
[2018-06-07] MEDS: ACETAMINOPHEN 325 MG TAB PO PRN ×2 (10:50→17:23)
--- NOTE | 2018-06-07 11:14 | NUR ---
Occupational Therapy Impression Co-treat with PT (OT captured billable minutes for treatment). Pt. required Min A to perform bed mobility and stand step pivot transfer with use of FWW from EOB to kylah chair. Pt. refused participation in ambulation activity. Pt. on 5 L of O2 during activity with SPO2 kept above 90%. OT recommends d/c to short term subacute rehab. Continue with POC. Occupational Therapy Goals 1) Pt will be SBA UB/LB dressing. 2) Pt will be SBA grooming/hygiene seated. 3) Pt will be SBA toilet task. 4) Pt will be educated on appropriate energy conservation techniques. Patient's Goal
--- NOTE | 2018-06-07 11:52 | Hospitalist Progress Note ---
Subjective Progress Notes Subjective 67F admitted for COPD exacerbation. Did have some elevated BP overnight, otherwise continues to improve slowly. Patient Complains of: Respiratory: No: Cough, Shortness of Breath Physical Exam Vital Signs Date Time Temp Pulse Resp B/P (MAP) Pulse Ox O2 Delivery O2 Flow Rate FiO2 06/07/18 10:15 94 High-Flow Nasal Cannula 4.5 06/07/18 09:30 97.9 06/07/18 08:21 86 22 162/96 (118) 06/07/18 05:35 40.0 Intake and Output 06/07/18 07:00 Intake Total 450 ml Balance 450 ml Intake Oral 200 ml IV Total 250 ml # Voids 3 # Bowel Movements 1 General Appearance: Alert, Awake, No Acute Distress Neuro: No Gross deficits Cardiovascular: Normal Rhythm & Peripheral Pulses (periodic tachycardia) Respiratory: No Respiratory Distress GI: Soft and Non-Tender Musculoskeletal: Other (generalized weakness) Extremities: Soft and Non Tender, Warm, Pulses, Perfused Result Diagram: 06/06/18 0543 06/07/18 0500 Assessment and Plan Problems: (1) COPD exacerbation Status: Acute Assessment & Plan: She is on nebulizers and completed 5 days azithromycin. She is also receiving prednisone. (2) Acute on chronic respiratory failure with hypoxia Assessment & Plan: She is on increased oxygen. Improved appears near baseline. (3) Anxiety Status: Acute Assessment & Plan: She does get anxious with her shortness of breath. Some of this was thought to be related to her beta agonists, which are now only being used as needed. She was also placed on clonazepam and Effexor. (4) Sinus tachycardia Status: Acute Assessment & Plan: She is in the low 100's for most of this admission. During panic attacks her heart goes up into the 130's. TSH wnl. On low dose metoprolol. Echo appears fairly normal. (5) Hypokalemia Status: Acute Assessment & Plan: Likely related to breathing treatments and will likely w orsen with the IV furosemide. Stable. (6) Diarrhea Status: Acute Assessment & Plan: Likely relate to antibiotics. Probiotic and do Imodium prn (7) Depression Status: Chronic Assessment & Plan: She filled an RX for fluoxetine, but states she does not take it. (8) History of lumbar fusion Status: Resolved Assessment & Plan: She has some chronic back pain related to this and uses low dose Flexeril. Exam Sepsis Risk: No Definite Risk MAC ANTONI MEEK DO Jun 07, 2018 11:52
[2018-06-07 13:00] VITALS: BP 158/96
[2018-06-07] MEDS: CYCLOBENZAPRINE HCL 10 MG TAB PO SCH (13:28)
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
[2018-06-07 17:19] VITALS: BP 140/94
[2018-06-07 19:05] VITALS: BP 148/84
[2018-06-07] MEDS: MONTELUKAST SODIUM 10 MG TAB PO SCH (21:01)
[2018-06-07] MEDS: CETIRIZINE HCL 10 MG TAB PO SCH (21:01)
[2018-06-07] MEDS: METOPROLOL SUCC XL 25 MG TABCR PO SCH (21:01)
[2018-06-07] MEDS: GABAPENTIN 300 MG CAP PO SCH (21:01)
[2018-06-08 00:11] VITALS: BP 150/90
[2018-06-08] MEDS: BUDESO/FORMOT 160/4.5 MCG 6 GM INH SCH ×2 (05:26→17:00)
[2018-06-08] MEDS: TIOTROPIUM BROM INH 18 MCG/CAP INH SCH (05:26)
[2018-06-08 07:00] VITALS: BP 127/85
[2018-06-08 08:49] VITALS: BP 140/86
[2018-06-08] MEDS: predniSONE 20 MG TAB PO SCH (08:56)
[2018-06-08] MEDS: amLODIPine BESYL(*) 2.5 MG TAB PO SCH (08:56)
[2018-06-08] MEDS: LACTOBACILLUS ACIDOPHILUS TAB PO SCH ×3 (08:56→17:48)
[2018-06-08] MEDS: clonazePAM 0.5 MG TAB PO SCH ×2 (08:56→20:58)
[2018-06-08] MEDS: FEXOFENADINE HCL 60 MG TAB PO SCH (08:57)
[2018-06-08] MEDS: ACETAMINOPHEN 325 MG TAB PO PRN ×2 (08:57→17:48)
[2018-06-08] MEDS: VENLAFAXINE REG 37.5 MG TAB PO SCH (08:57)
[2018-06-08] MEDS: ENOXAPARIN 30 MG/0.3 ML SYR SC SCH (08:57)
--- NOTE | 2018-06-08 11:18 | Hospitalist Progress Note ---
Subjective Progress Notes Subjective Still weak and short of breath at times. Does get anxious. O2 requirements have decreased a bit. Physical Exam Vital Signs Date Time Temp Pulse Resp B/P (MAP) Pulse Ox O2 Delivery O2 Flow Rate FiO2 06/08/18 08:49 88 20 140/86 (104) 92 Nasal Cannula 2.0 06/08/18 07:00 97.2 06/08/18 00:11 40.0 Intake and Output 06/08/18 07:00 Intake Total 990 ml Balance 990 ml Intake Oral 990 ml # Voids 3 # Bowel Movements 3 General Appearance: Alert, Awake, No Acute Distress Cardiovascular: Regular Rate and Rhythm Respiratory: Other (Very diminished BS throughout.) GI: Soft and Non-Tender Extremities: Warm, Perfused Integumentary: Generalized Fragile Skin Psych: Appropriate Mood & Affect Result Diagram: 06/06/18 0543 06/07/18 0547 Assessment and Plan Problems: (1) COPD exacerbation Status: Acute Assessment & Plan: She is on nebulizers and completed 5 days azithromycin. She is also receiving prednisone. Will start to slowly taper. (2) Acute on chronic respiratory failure with hypoxia Assessment & Plan: She was on increased oxygen initially. Improved, appears near baseline. (3) Anxiety Status: Acute Assessment & Plan: She does get anxious with her shortness of breath. Some of this was thought to be related to her beta agonists, which are now only being used as needed. She was also placed on clonazepam and Effexor. (4) Sinus tachycardia Status: Acute Assessment & Plan: She is in the low 100's for most of this admission. During panic attacks her heart goes up into the 130's. TSH wnl. On low dose metoprolol. Echo appears fairly normal. (5) Hypokalemia Status: Acute Assessment & Plan: Likely related to breathing treatments and will likely worsen with the IV furosemide. Stable. (6) Diarrhea Status: Acute Assessment & Plan: Likely relate to antibiotics. Probiotic and do Imodium prn (7) Depression Status: Chronic Assessment & Plan: She filled an RX for fluoxetine, but states she does not take it. (8) History of lumbar fusion Status: Resolved Assessment & Plan: She has some chronic back pain related to this and uses low dose Flexeril. Time Spent on Plan of Care: < 30 min Exam Sepsis Risk: No Definite Risk CESIA MISTRY MD Jun 08, 2018 11:18
--- NOTE | 2018-06-08 12:47 | NUR ---
Physical Therapy Impression Pt performed supine>sit with SBA, sit<>stand with CGA, and ambulated 15' with RW and CGA with SO2 maintaining >88%, HR in 120s. Pt SOB after ambulation, however, SO2 maintained within safe range. Physical Therapy Goals 1: Pt to complete bed mobility with Jana 2: Pt to cmplete transfers with Jana and appropriate AD 3: Pt to ambulate 100' with Jana and appropriate AD 4: Pt asc/desc 1 stair with Jana and appropriate AD Patient's Goals
[2018-06-08] MEDS: CYCLOBENZAPRINE HCL 10 MG TAB PO SCH (13:44)
[2018-06-08 13:46] VITALS: BP 138/82
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
[2018-06-08 16:15] VITALS: BP 148/88
[2018-06-08] MEDS: METOPROLOL SUCC XL 25 MG TABCR PO SCH (20:58)
[2018-06-08] MEDS: CETIRIZINE HCL 10 MG TAB PO SCH (20:58)
[2018-06-08] MEDS: GABAPENTIN 300 MG CAP PO SCH (20:58)
[2018-06-08] MEDS: MONTELUKAST SODIUM 10 MG TAB PO SCH (20:59)
[2018-06-08 21:05] VITALS: BP 152/94
[2018-06-09 02:44] VITALS: BP 134/88
[2018-06-09] MEDS: BUDESO/FORMOT 160/4.5 MCG 6 GM INH SCH ×2 (05:41→17:36)
[2018-06-09] MEDS: TIOTROPIUM BROM INH 18 MCG/CAP INH SCH (05:41)
[2018-06-09 06:15] LABS: PLATELET COUNT, AUTOMATED 185 K/uL (150-450)
[2018-06-09 09:40] VITALS: BP 132/78
[2018-06-09] MEDS: POTASSIUM CHL 10 MEQ TABCR PO SCH ×2 (09:43→17:12)
[2018-06-09] MEDS: clonazePAM 0.5 MG TAB PO SCH ×2 (09:43→21:03)
[2018-06-09] MEDS: predniSONE 10 MG TAB PO SCH (09:43)
[2018-06-09] MEDS: FEXOFENADINE HCL 60 MG TAB PO SCH (09:43)
[2018-06-09] MEDS: VENLAFAXINE REG 37.5 MG TAB PO SCH (09:43)
[2018-06-09] MEDS: LACTOBACILLUS ACIDOPHILUS TAB PO SCH ×3 (09:43→17:11)
[2018-06-09] MEDS: amLODIPine BESYL(*) 2.5 MG TAB PO SCH (09:43)
[2018-06-09] MEDS: ENOXAPARIN 30 MG/0.3 ML SYR SC SCH (09:44)
[2018-06-09] MEDS: ACETAMINOPHEN 325 MG TAB PO PRN ×2 (09:50→17:12)
--- NOTE | 2018-06-09 10:17 | Hospitalist Progress Note ---
Subjective Progress Notes Subjective This patient was admitted for COPD. She had no acute events overnight. Patient Complains of: Cardiovascular: No: Chest Pain Respiratory: No: Shortness of Breath Physical Exam Vital Signs Date Time Temp Pulse Resp B/P (MAP) Pulse Ox O2 Delivery O2 Flow Rate FiO2 06/09/18 09:40 97.5 92 20 132/78 (96) 92 High-Flow Nasal Cannula 2.0 06/09/18 01:26 40.0 Intake and Output 06/09/18 07:00 Intake Total 470 ml Output Total 300 ml Balance 170 ml Intake Oral 470 ml Output Urine Total 300 ml # Voids 2 # Bowel Movements 2 Cardiovascular: Regular Rate and Rhythm Respiratory: Clear to Auscultation Result Diagram: 06/09/1852106/09/18521 Assessment and Plan Problems: (1) COPD exacerbation Status: Acute Assessment & Plan: She is on nebulizers and completed 5 days azithromycin. She is also receiving prednisone, which is being tapered down. (2) Acute on chronic respiratory failure with hypoxia Assessment & Plan: She was on increased oxygen initially. Improved, appears near baseline. (3) Anxiety Status: Acute Assessment & Plan: She does get anxious with her shortness of breath. Some of this was thought to be related to her beta agonists, which are now only being used as needed. She was also placed on clonazepam and Effexor. (4) Sinus tachycardia Status: Acute Assessment & Plan: She is in the low 100's for most of this admission. During panic attacks her heart goes up into the 130's. TSH wnl. On low dose metoprolol. Echo appears fairly normal. (5) Hypokalemia Status: Acute Assessment & Plan: She has been started on oral potassium. (6) Diarrhea Status: Acute Assessment & Plan: Likely relate to antibiotics. Probiotic and do Imodium prn (7) Depression Status: Chronic Assessment & Plan: She filled an RX for fluoxetine, but states she does not take it. (8) History of lumbar fusion Status: Resolved Assessment & Plan: She has some chronic back pain related to this and uses low dose Flexeril. Exam Sepsis Risk: No Definite Risk MERCY SEN DO Jun 09, 2018 10:17
--- NOTE | 2018-06-09 12:00 | NUR ---
Physical Therapy Impression Pt completed bed mobility with SBA and HOB raised. CGA for transfers and ambulation x20' with RW. Pt with non-straight path with ambulation, with difficulty turning without crossing feet. She will benefit from STSAR, SpO2 WNL on 2L o2. Physical Therapy Goals 1: Pt to complete bed mobility with Jana 2: Pt to cmplete transfers with Jana and appropriate AD 3: Pt to ambulate 100' with Jana and appropriate AD 4: Pt asc/desc 1 stair with Jana and appropriate AD Patient's Goals
[2018-06-09] MEDS: CYCLOBENZAPRINE HCL 10 MG TAB PO SCH (13:28)
[2018-06-09 16:43] VITALS: BP 128/84
[2018-06-09 20:00] VITALS: BP 142/88
[2018-06-09] MEDS: MONTELUKAST SODIUM 10 MG TAB PO SCH (21:03)
[2018-06-09] MEDS: GABAPENTIN 300 MG CAP PO SCH (21:03)
[2018-06-09] MEDS: CETIRIZINE HCL 10 MG TAB PO SCH (21:03)
[2018-06-09] MEDS: METOPROLOL SUCC XL 25 MG TABCR PO SCH (21:03)
[2018-06-10 05:01] VITALS: BP 150/90
[2018-06-10] MEDS: TIOTROPIUM BROM INH 18 MCG/CAP INH SCH (05:46)
[2018-06-10] MEDS: BUDESO/FORMOT 160/4.5 MCG 6 GM INH SCH ×2 (05:46→17:32)
[2018-06-10 07:14] VITALS: BP 150/78
[2018-06-10] MEDS: clonazePAM 0.5 MG TAB PO SCH ×2 (08:34→21:16)
[2018-06-10] MEDS: amLODIPine BESYL(*) 2.5 MG TAB PO SCH (08:34)
[2018-06-10] MEDS: VENLAFAXINE REG 37.5 MG TAB PO SCH (08:34)
[2018-06-10] MEDS: FEXOFENADINE HCL 60 MG TAB PO SCH (08:34)
[2018-06-10] MEDS: ENOXAPARIN 30 MG/0.3 ML SYR SC SCH (08:34)
[2018-06-10] MEDS: LACTOBACILLUS ACIDOPHILUS TAB PO SCH ×3 (08:34→17:25)
[2018-06-10] MEDS: predniSONE 10 MG TAB PO SCH (08:34)
[2018-06-10] MEDS: POTASSIUM CHL 10 MEQ TABCR PO SCH (08:34)
--- NOTE | 2018-06-10 10:50 | Hospitalist Progress Note ---
Subjective Progress Notes Subjective She reports dyspnea with activities, but "better than I was before". Physical Exam Vital Signs Date Time Temp Pulse Resp B/P (MAP) Pulse Ox O2 Delivery O2 Flow Rate FiO2 06/10/18 08:34 92 High-Flow Nasal Cannula 2.0 06/10/18 07:14 97.9 71 12 150/78 (102) 06/09/18 23:02 40.0 Intake and Output 06/10/18 07:00 Intake Total 500 ml Balance 500 ml Intake Oral 500 ml # Voids 2 General Appearance: Alert, Awake, Other (dyspnea with speaking 3-4 words) Cardiovascular: Other (Regular with distant tones) Respiratory: Other (greatly diminished breath sounds throughout with prolonged expiratory phase) GI: Soft and Non-Tender Extremities: Warm, Perfused Integumentary: Generalized Fragile Skin Result Diagram: 06/09/1852106/10/18532 Assessment and Plan Problems: (1) COPD exacerbation Status: Acute Assessment & Plan: Clinically improved. Still with limited activity tolerance. She is on nebulizers and completed 5 days of azithromycin. She is also receiving prednisone, which is being tapered down. (2) Acute on chronic respiratory failure with hypoxia Assessment & Plan: She was on increased oxygen initially. Improved, appears to be nearing her baseline. (3) Anxiety Status: Acute Assessment & Plan: She does get anxious with her shortness of breath. Some of this was thought to be related to her inhaled beta agonists, which are now only being used as needed. She was also placed on clonazepam and Effexor. (4) Sinus tachycardia Status: Acute Assessment & Plan: She is in the low 100's for most of this admission. During panic attacks her heart goes up into the 130's. TSH in normal range. On low dose metoprolol. Echo appears fairly normal. (5) Hypokalemia Status: Acute Assessment & Plan: She has been started on oral potassium. Monitor lab. (6) Diarrhea Status: Acute Assessment & Plan: Improved. She is on probiotics. (7) Depression Status: Chronic Assessment & Plan: She filled an RX for fluoxetine, but states she does not take it. (8) History of lumbar fusion Status: Resolved Assessment & Plan: She has some chronic back pain related to this and uses low dose Flexeril. Exam Sepsis Risk: No Definite Risk CATALINA MISTRY MD Jun 10, 2018 10:50
[2018-06-10] MEDS: ACETAMINOPHEN 325 MG TAB PO PRN ×2 (11:28→17:25)
[2018-06-10 11:30] VITALS: BP 156/96
[2018-06-10] MEDS: CYCLOBENZAPRINE HCL 10 MG TAB PO SCH (13:08)
[2018-06-10 18:50] VITALS: BP 143/82
[2018-06-10] MEDS: CETIRIZINE HCL 10 MG TAB PO SCH (21:16)
[2018-06-10] MEDS: MONTELUKAST SODIUM 10 MG TAB PO SCH (21:16)
[2018-06-10] MEDS: METOPROLOL SUCC XL 25 MG TABCR PO SCH (21:16)
[2018-06-10] MEDS: GABAPENTIN 300 MG CAP PO SCH (21:16)
[2018-06-10 23:15] VITALS: BP 121/78
[2018-06-11] MEDS: TIOTROPIUM BROM INH 18 MCG/CAP INH SCH (05:23)
[2018-06-11] MEDS: BUDESO/FORMOT 160/4.5 MCG 6 GM INH SCH (05:24)
[2018-06-11 06:45] VITALS: BP 162/95
[2018-06-11] MEDS ORDERED: BISACODYL 10 MG SUPP PR PRN (08:25)
[2018-06-11] MEDS ORDERED: MAGNESIUM HYDROXIDE* 30ML UDCP PO PRN (08:25)
[2018-06-11] MEDS ORDERED: POTASSIUM CHL 10 MEQ TABCR PO SCH (09:00)
[2018-06-11] MEDS ORDERED: POLYETHYLENE GLYCOL 17 GM PKT PO SCH (09:00)
[2018-06-11] MEDS ORDERED: DOCUSATE SODIUM 100 MG CAP PO SCH (09:00)
[2018-06-11] MEDS: ENOXAPARIN 30 MG/0.3 ML SYR SC SCH (10:04)
[2018-06-11] MEDS: FEXOFENADINE HCL 60 MG TAB PO SCH (10:04)
[2018-06-11] MEDS: amLODIPine BESYL(*) 2.5 MG TAB PO SCH (10:04)
[2018-06-11] MEDS: VENLAFAXINE REG 37.5 MG TAB PO SCH (10:04)
[2018-06-11] MEDS: predniSONE 10 MG TAB PO SCH (10:05)
[2018-06-11] MEDS: LACTOBACILLUS ACIDOPHILUS TAB PO SCH (10:47)
[2018-06-11] MEDS: clonazePAM 0.5 MG TAB PO SCH (10:47)
--- NOTE | 2018-06-11 11:22 | Transfer Summary (ECF/SWB) ---
Transfer Summary (ECF/SWB) Problems: (1) COPD exacerbation Status: Acute Assessment & Plan: Clinically improved. Still with limited activity tolerance. She is on nebulizers and completed 5 days of azithromycin. She is also receiving prednisone, which is being tapered down. (2) Acute on chronic respiratory failure with hypoxia Assessment & Plan: She was on increased oxygen initially. Improved, appears to be nearing her baseline. (3) Anxiety Status: Acute Assessment & Plan: She does get anxious with her shortness of breath. Some of this was thought to be related to her inhaled beta agonists, which are now only being used as needed. She was also placed on clonazepam and Effexor. (4) Sinus tachycardia Status: Acute Assessment & Plan: She is in the low 100's for most of this admission. During panic attacks her heart goes up into the 130's. TSH in normal range. On low dose metoprolol. Echo appears fairly normal. (5) Hypokalemia Status: Acute Assessment & Plan: She has been started on oral potassium. Monitor lab. (6) Diarrhea Status: Acute Assessment & Plan: Improved. She is on probiotics. (7) Depression Status: Chronic Assessment & Plan: She filled an RX for fluoxetine, but states she does not take it. (8) History of lumbar fusion Status: Resolved Assessment & Plan: She has some chronic back pain related to this and uses low dose Flexeril. Latest Vital Signs Vital Signs Date Time Temp Pulse Resp B/P (MAP) Pulse Ox O2 Delivery O2 Flow Rate FiO2 06/11/18 08:02 93 Nasal Cannula 2.0 06/11/18 06:45 97.5 77 16 162/95 (117) 06/10/18 19:53 40.0 Result Diagram: 06/09/18 0522 06/11/18 05 Condition: Improved Disposition: SNF/NH Treatment Goals and Plan Patient requires custodial and/or skilled rehabilitation with the goal to increase independence with ADL's, functional strength and mobility. Continue and adjust medication regimen. Services Required: PT, OT TRANG AMAYAP Jun 11, 2018 11:22
== END 2018-06-11 10:50 | DRG 190 ==
LOC: ER 14:42 → ICU 18:10 → MED 06-04 15:00
PROVIDERS: ADMIT Internal Medicine; ATTEND Internal Medicine
PROC: 5A09357 Assistance with Respiratory Ventilation, Less than 24 Consecutive Hours, Continuous Positive Airway Pressure (ICD-10-PCS; principal; 2018-06-04)
DX: J44.1 Chronic obstructive pulmonary disease with (acute) exacerbation (principal); J96.21 Acute and chronic respiratory failure with hypoxia; E87.6 Hypokalemia; I10 Essential (primary) hypertension; K21.9 Gastro-esophageal reflux disease without esophagitis; F32.9 Major depressive disorder, single episode, unspecified; N31.9 Neuromuscular dysfunction of bladder, unspecified; R00.0 Tachycardia, unspecified; G43.909 Migraine, unspecified, not intractable, without status migrainosus; F41.0 Panic disorder [episodic paroxysmal anxiety]; F17.210 Nicotine dependence, cigarettes, uncomplicated; T36.95XA Adverse effect of unspecified systemic antibiotic, initial encounter; R19.7 Diarrhea, unspecified; Z88.8 Allergy status to other drugs, medicaments and biological substances; Z98.1 Arthrodesis status; Z88.5 Allergy status to narcotic agent; Z88.0 Allergy status to penicillin; Z90.710 Acquired absence of both cervix and uterus; Z91.14 Patient's other noncompliance with medication regimen
CPT/HCPCS: 36415; 36600; 71045; 82040; 82247; 82274; 82310; 82374; 82435; 82565; 82803; 82947; 83605; 83630; 83735; 83880; 84075; 84132; 84155; 84295; 84443; 84450; 84460; 84484; 84520; 85025; 87040; 87045; 87070; 87077; 87186; 87205; 93005; 93306; 94640; 94644; 94660; 94667; 94668; 96361; 96365; 96367; 96375; 97162; 97166; 99285; C1758; J0456; J0696; J1650; J1940; J2060; J2550; J2930; J3480; J3535; J7030; J7050; J7512; J7613; J7614

== ENCOUNTER → 2018-06-02 | Outpatient (CLI) | payer MEDICARE, MEDICAID ==
[~2018-06-02] MED LIST changes: +CYCL-277 PO; +FLUO-176 PO
[2018-06-03 09:43] VITALS: BMI 15.4
== END ==
LOC: AMB 13:47
PROVIDERS: ATTEND Nurse Practitioner
DX: R06.82 Tachypnea, not elsewhere classified (principal); R06.2 Wheezing; R05 Cough
CPT/HCPCS: A0425; A0427

== ENCOUNTER 2018-06-11 10:08 | Inpatient (IN) | payer MEDICARE, MEDICAID ==
[2018-06-03 09:43] VITALS: Ht 144.8 cm; Wt 31.3 kg
[~2018-06-11] VITALS: Ht 144.8 cm; Wt 31.3 kg
[~2018-06-11 10:08] MED LIST changes: +CYCL-277 PO; +FLUO-176 PO
[2018-06-11] MEDS ORDERED: LOPERAMIDE HCL 2 MG CAP PO PRN (11:13)
[2018-06-11] MEDS ORDERED: BISACODYL 10 MG SUPP PR PRN (11:13)
[2018-06-11] MEDS ORDERED: MAGNESIUM HYDROXIDE* 30ML UDCP PO PRN (11:13)
[2018-06-11] MEDS ORDERED: LEVALBUTEROL 0.63 MG/3 ML NEB NEB PRN (11:13)
[2018-06-11 11:18] VITALS: BP 170/88
[2018-06-11] MEDS: LACTOBACILLUS ACIDOPHILUS TAB PO SCH ×2 (12:27→17:25)
[2018-06-11] MEDS: CYCLOBENZAPRINE HCL 10 MG TAB PO SCH (13:18)
--- NOTE | 2018-06-11 13:37 | PT ECF NOTE ---
Type of Note: Initial Note Primary Medical Diagnosis: COPD exacerbation, acute on chronic respiratory failure Physical Therapy Evaluation Date: 06/11/18 SUBJECTIVE: Prior Hospitalization: [facility] 06/02- Prior Level of Function: Pt was declining functionally prior to hospital admission stating her daughter had moved in the help and she was no longer able to walk across the street. Prior Living Status: Pt lived alone in [place], [place] and was receiving help with IADLs from her daughter Community Services: none reported Home Accessibility: Pt will not be moving back to her home in [place]. Pt currently does not have a discharge location but states her other daughter is looking into assisted living Equipment Owned: Pt reports having a shower chair, no walking aids Medical Complications/Past Medical History: Please see [employer] Psychosocial Support: Pt has supportive family Pain Scale (0-10): Pt denies pain. OBJECTIVE: Pt politely declined any functional mobility during eval. Bed Mobility: Assistive device: Transfers: Assistive Device: Gait: Assistive device: Stairs: Assistive device: ASSESSMENT: Pt presents with overall decline in function and tolerance to activity following hospitalization. Pt will benefit from skilled PT for functional mobility and functional endurance training in order to return to least restrictive environment. Problem List/Current Limitations: Decreased activity tolerance, Decreased strength, Generalized weakness Short Term Goals: 1. Mod I bed mobility. 2. Mod I transfers. 3. Mod I gait x 150' with appropriate assistive device. 4. Ascend/descend stairs appropriate for discharge destination with SBA. [facility]ci Goals: Discharge to least restrictive environment. Patient Goals: Get stronger and "walk around" Rehabilitation Prognosis: Fair Barriers for Discharge: Pt currently does not have a discharge destination. PLAN: The patient will benefit from skilled physical therapy services 5 times per week for 2 weeks including: Therapeutic Exercise, Therapeutic Activities, Transfer Training, Gait Training, Stair Training, Manual Therapy, ADL's, Safety Training, Neuromuscular Re-educ., Pt/Caregiver Training, Bed Mobility Thank you for this referral. If you have any questions, concerns, or comments about this report or plan, please contact me at . Joan Miranda, PT, DPT, GCS MTDD
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
--- NOTE | 2018-06-11 14:24 | Consultant Pharmacy Review ---
Consumer Marketing Manager Review Medication Review Do All Mecications have a Diag: Yes Beers Criteria Medication 2015 Benzodiazapines (long acting): Clonazepam Other General Cautions Lexicomp Interaction Analysis A = No known interaction C = Monitor therapy X = Avoid combination B = No action needed D = Consider therapy modification Drugs in this analysis: Acetaminophen; Delmy Allergy [OTC]; ClonazePAM; Cyclobenzaprine; Lactobacillus; Loperamide; Lovenox; Montelukast; Neurontin; Norvasc; Potassium Chloride; PredniSONE; Spiriva (CAN); Symbicort; Toprol XL; Venlafaxine; Xopenex; ZyrTEC Allergy [OTC] * Drug-Drug Interactions X Delmy Allergy [OTC] (Anticholinergic Agents) Potassium Chloride Depends on Dosage Form X Delmy Allergy [OTC] (Anticholinergic Agents) Spiriva (CAN) (Tiotropium) X Cyclobenzaprine (Anticholinergic Agents) Potassium Chloride Depends on Dosag e Form X Cyclobenzaprine (Anticholinergic Agents) Spiriva (CAN) (Tiotropium) X Potassium Chloride Spiriva (CAN) (Anticholinergic Agents) Depends on Dosage Form X Potassium Chloride ZyrTEC Allergy [OTC] (Anticholinergic Agents) Depends on Dosage Form X Spiriva (CAN) (Tiotropium) ZyrTEC Allergy [OTC] (Anticholinergic Agents) C Delmy Allergy [OTC] (Anticholinergic Agents) Cyclobenzaprine (Anticholinergic Agents) C Delmy Allergy [OTC] (Anticholinergic Agents) ZyrTEC Allergy [OTC] (Anticholinergic Agents) C Delmy Allergy [OTC] (GRADUATE RECRUITER Depressants) ClonazePAM (GRADUATE RECRUITER Depressants) C Delmy Allergy [OTC] (GRADUATE RECRUITER Depressants) Cyclobenzaprine (GRADUATE RECRUITER Depressants) C Delmy Allergy [OTC] (GRADUATE RECRUITER Depressants) Neurontin (GRADUATE RECRUITER Depressants) C Delmy Allergy [OTC] (GRADUATE RECRUITER Depressants) ZyrTEC Allergy [OTC] (GRADUATE RECRUITER Depressants) C ClonazePAM (GRADUATE RECRUITER Depressants) Cyclobenzaprine (GRADUATE RECRUITER Depressants) C ClonazePAM (GRADUATE RECRUITER Depressants) Neurontin (GRADUATE RECRUITER Depressants) C ClonazePAM (GRADUATE RECRUITER Depressants) ZyrTEC Allergy [OTC] (GRADUATE RECRUITER Depressants) C Cyclobenzaprine (Anticholinergic Agents) ZyrTEC Allergy [OTC] (Anticholinergic Agents) C Cyclobenzaprine (GRADUATE RECRUITER Depressants) Neurontin (GRADUATE RECRUITER Depressants) C Cyclobenzaprine (GRADUATE RECRUITER Depressants) ZyrTEC Allergy [OTC] (GRADUATE RECRUITER Depressants) C Cyclobenzaprine (Serotonin Modulators) Venlafaxine (Serotonin Modulators) C Lovenox (Anticoagulants) Venlafaxine (Agents with Antiplatelet Properties) Depends on International labeling C Lovenox (Heparins (Low Molecular Weight)) Potassium Chloride (Potassium Salts) C Neurontin (GRADUATE RECRUITER Depressants) ZyrTEC Allergy [OTC] (GRADUATE RECRUITER Depressants) C Symbicort (Beta2-Agonists) Toprol XL (Beta-Blockers (Beta1 Selective)) C Symbicort (Sympathomimetics) Xopenex (Sympathomimetics) C Toprol XL (Beta-Blockers (Beta1 Selective)) Xopenex (Beta2-Agonists) B PredniSONE (Corticosteroids) Symbicort (Beta2-Agonists) B PredniSONE (Corticosteroids) Xopenex (Beta2-Agonists) Due to 4 anticholinergic meds (Spiriva, flexeril, Zyrtec and Delmy) the oral potassium will be switched to liquid. Pneumococcal Vaccine HX Pneumo Vac ([id number]): Yes (2016) Comments Regarding the Review Patient is a candidate for the Pneumovax 23 vaccine if willing to receive. Due to multiple anticholinergic medications (Spiriva, Zyrtec, Delmy, Flexeril) the potassium chloride will be changed to liquid formulation to reduce the possibility of gastrointestinal ulceration that may occur due to delayed gastric emptying from anticholinergic medications. Monitor for falls due to clonazepam and gabapentin use. YESSI STUBBS Jun 11, 2018 14:24
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
--- NOTE | 2018-06-11 16:08 | NUR ---
Occupational Therapy Impression Subjective evaluation completed with PT. Please refer to notes regarding details for plan of care. Occupational Therapy Goals 1. Pt. to perform dressing activities with SBA. 2. Pt. to perform showering activities with Min A. 3. Pt. to perform grooming activities with I. 4. Pt. to perform toileting activities with Mod I. 5. Pt. to increase Raymond Index of ADL score by 2 points. Patient's Goal
--- NOTE | 2018-06-11 16:17 | OT ECF NOTE ---
Type of Note: Initial Note Primary Medical Diagnosis: COPD exacerbation Occupational Therapy Evaluation Date: 06-11-18 SUBJECTIVE: Prior Hospitalization: [facility] ICU/Medical floor from 06/02/18 to 06/11/18. Prior Level of Function: Declining in independence of past weeks/months. Prior Living Status: Pt. resided, alone in [place], [place]. Family and pt. are researching other d/c options. Community Services: None prior to admission. Home Accessibility: No home to d/c to at this time. Equipment Owned: Tub/shower chair Medical Complications/Past Medical History: Please refer to chart for details. Psychosocial Support: Supportive daughter/brother Pain Scale (0-10): 0/10 OBJECTIVE: Strength: MMT: Right Left Shoulder Flexion [*] [*] Elbow Flexion [*] [*] Wrist Extension [*] [*] Emergency Dept Tech [*] [*] (5= normal, 4= good, 3= fair, 2= poor, 1= trace) ROM: Both upper extremities WFL Functional Transfer: Assistive Device: Front wheeled walker EZ/Patient assisted lift Gait belt Transfer Ability: CGA ADL: Upper body dressing: N/T Assistive device: Upper body dressing ability: Lower body dressing:N/T Assistive device: Lower body dressing ability: Toileting: N/T Assistive device: Toileting ability: Grooming/hygiene: N/T Assistive device: Grooming ability: Bathing: N/T Assistive device: Bathing ability: Standardized Assessment: Raymond Index of Activities of Daily Living- Pt. scored 11/20 on this Index upon initial evaluation. ASSESSMENT: Pt. is a 67 year old female who was admitted to [facility] ICU on 06/02/18 with dx of COPD exacerbation. Pt. was residing in [place], [place], alone, however, family reports that this living situation is not suitable to return to. Pt. and family are researching options for places for pt. to live s/p d/c in [place] where more services would be available to assist patient. Pt. admitted to [facility] ECF to gain independence in ADL's and strength/ endurance. Problem List/Current Limitations: Pain Decreased activity joseph Decreased strength Decreased coordination Generalized weakness Short Term Goals: 1. Pt. to perform dressing activities with SBA. 2. Pt. to perform showering activities with Min A. 3. Pt. to perform grooming activities with I. 4. Pt. to perform toileting activities with Mod I. 5. Pt. to increase Raymond Index of ADL score by 2 points. [facility] Goals: Safe d/c. Patient Goals: D/c with assistance Rehabilitation Prognosis: Fair Barriers to Discharge: Pt.'s prior living situation is not suitable to return to. PLAN: The patient will benefit from skilled occupational therapy services 5 times per week for 2 weeks including: Ther ex ADL training Safety training Ther act IADL training Transfer training Bed mobility Thank you for this referral. If you have any questions, concerns, or comments about this report or plan, please contact me at . Katie Harris, OTR/L Occupational Therapist LUCY
[2018-06-11] MEDS: BUDESO/FORMOT 160/4.5 MCG 6 GM INH SCH (17:05)
[2018-06-11 18:30] VITALS: BP 144/90
[2018-06-11] MEDS: DOCUSATE SODIUM 100 MG CAP PO SCH (21:31)
[2018-06-11] MEDS: MONTELUKAST SODIUM 10 MG TAB PO SCH (21:31)
[2018-06-11] MEDS: CETIRIZINE HCL 10 MG TAB PO SCH (21:31)
[2018-06-11] MEDS: clonazePAM 0.5 MG TAB PO SCH (21:31)
[2018-06-11] MEDS: METOPROLOL SUCC XL 25 MG TABCR PO SCH (21:32)
[2018-06-11] MEDS: GABAPENTIN 300 MG CAP PO SCH (21:32)
[2018-06-12] MEDS: TIOTROPIUM BROM INH 18 MCG/CAP INH SCH (05:36)
[2018-06-12] MEDS: BUDESO/FORMOT 160/4.5 MCG 6 GM INH SCH ×2 (05:36→17:20)
[2018-06-12 08:30] VITALS: BP 182/96
[2018-06-12] MEDS: amLODIPine BESYL(*) 2.5 MG TAB PO SCH (09:10)
[2018-06-12] MEDS: predniSONE 20 MG TAB PO SCH (09:10)
[2018-06-12] MEDS: POLYETHYLENE GLYCOL 17 GM PKT PO SCH (09:10)
[2018-06-12] MEDS: DOCUSATE SODIUM 100 MG CAP PO SCH ×2 (09:10→21:00)
[2018-06-12] MEDS: ENOXAPARIN 30 MG/0.3 ML SYR SC SCH (09:10)
[2018-06-12] MEDS: LACTOBACILLUS ACIDOPHILUS TAB PO SCH ×3 (09:11→17:29)
[2018-06-12] MEDS: FEXOFENADINE HCL 60 MG TAB PO SCH (09:11)
[2018-06-12] MEDS: VENLAFAXINE REG 37.5 MG TAB PO SCH (09:11)
[2018-06-12] MEDS: clonazePAM 0.5 MG TAB PO SCH ×2 (09:11→21:17)
[2018-06-12] MEDS: POTASSIUM CHL 10% SF LIQ 20MEQ PO SCH (09:11)
--- NOTE | 2018-06-12 13:01 | NUR ---
Physical Therapy Impression Pt able to get OOB with HOB flat and no assist. Sit <> stand from EOB and toilet with SBA. Ambulation in room with close SBA. Pt reports getting dizzy in bathroom but did not think she needed to sit at that time. SpO2 and pulse rate WNL in sitting and standing on 3.0 L O2 when reporting dizziness. Once sitting in kylah chair pt reports no change in dizziness, states, "I'll just close my eyes and I'll feel much better". No safety concerns once sitting in chair. Pt reports feeling better after approx. 5 minutes. Cont. with POC. Physical Therapy Goals 1. Mod I bed mobility. 2. Mod I transfers. 3. Mod I gait x 150' with appropriate assistive device. 4. Ascend/descend stairs appropriate for discharge destination with SBA. Patient's Goals
[2018-06-12] MEDS: CYCLOBENZAPRINE HCL 10 MG TAB PO SCH (13:21)
[2018-06-12 17:10] VITALS: BP 132/82
[2018-06-12 20:00] VITALS: BP 160/90
[2018-06-12] MEDS: MONTELUKAST SODIUM 10 MG TAB PO SCH (21:17)
[2018-06-12] MEDS: GABAPENTIN 300 MG CAP PO SCH (21:17)
[2018-06-12] MEDS: METOPROLOL SUCC XL 25 MG TABCR PO SCH (21:17)
[2018-06-12] MEDS: CETIRIZINE HCL 10 MG TAB PO SCH (21:17)
[2018-06-13] MEDS: TIOTROPIUM BROM INH 18 MCG/CAP INH SCH (05:42)
[2018-06-13] MEDS: BUDESO/FORMOT 160/4.5 MCG 6 GM INH SCH ×2 (05:42→17:40)
[2018-06-13 07:50] VITALS: BP 142/88
[2018-06-13] MEDS: predniSONE 20 MG TAB PO SCH (09:00)
[2018-06-13] MEDS: DOCUSATE SODIUM 100 MG CAP PO SCH ×2 (09:00→20:47)
[2018-06-13] MEDS: VENLAFAXINE REG 37.5 MG TAB PO SCH (09:00)
[2018-06-13] MEDS: clonazePAM 0.5 MG TAB PO SCH ×2 (09:00→20:47)
[2018-06-13] MEDS: POLYETHYLENE GLYCOL 17 GM PKT PO SCH (09:00)
[2018-06-13] MEDS: FEXOFENADINE HCL 60 MG TAB PO SCH (09:00)
[2018-06-13] MEDS: ENOXAPARIN 30 MG/0.3 ML SYR SC SCH (09:00)
[2018-06-13] MEDS: amLODIPine BESYL(*) 2.5 MG TAB PO SCH (09:00)
[2018-06-13] MEDS: POTASSIUM CHL 10% SF LIQ 20MEQ PO SCH (09:01)
--- NOTE | 2018-06-13 09:55 | ECF History & Physical ---
Transfer Summary (ECF/SWB) Problems: (1) COPD exacerbation Status: Acute Assessment & Plan: Clinically improved. Still with limited activity tolerance. She is on nebulizers and completed 5 days of azithromycin. She is also receiving prednisone, which is being tapered down. (2) Acute on chronic respiratory failure with hypoxia Assessment & Plan: She was on increased oxygen initially. Improved, appears to be nearing her baseline. (3) Anxiety Status: Acute Assessment & Plan: She does get anxious with her shortness of breath. Some of this was thought to be related to her inhaled beta agonists, which are now only being used as needed. She was also placed on clonazepam and Effexor. (4) Sinus tachycardia Status: Acute Assessment & Plan: She is in the low 100's for most of this admission. During panic attacks her heart goes up into the 130's. TSH in normal range. On low dose metoprolol. Echo appears fairly normal. (5) Hypokalemia Status: Acute Assessment & Plan: She has been started on oral potassium. Monitor lab. (6) Diarrhea Status: Acute Assessment & Plan: Improved. She is on probiotics. (7) Depression Status: Chronic Assessment & Plan: She filled an RX for fluoxetine, but states she does not take it. (8) History of lumbar fusion Status: Resolved Assessment & Plan: She has some chronic back pain related to this and uses low dose Flexeril. Latest Vital Signs Vital Signs Date Time Temp Pulse Resp B/P (MAP) Pulse Ox O2 Delivery O2 Flow Rate FiO2 06/11/18 08:02 93 Nasal Cannula 2.0 06/11/18 06:45 97.5 77 16 162/95 (117) 06/10/18 19:53 40.0 Result Diagram: 06/09/1822 06/11/18519 Condition: Improved Disposition: SNF/NH Treatment Goals and Plan Patient requires intermediate and/or skilled rehabilitation with the goal to increase independence with ADL's, functional strength and mobility. Continue and adjust medication regimen. Services Required: PT, OT TRANG AMAYA Jun 11, 2018 11:22 <Electronically signed by NIKKI CAPPS> D/ 21 21 21 GAVINO/ARMANDO CC: LUCY
[2018-06-13] MEDS: LACTOBACILLUS ACIDOPHILUS TAB PO SCH ×3 (10:21→17:43)
--- NOTE | 2018-06-13 11:33 | NUR ---
Occupational Therapy Impression SBA supine to sit with HOB raised. CGA ambulation x20ft, x15ft with RW. One major loss of balance doffing pants for toileting, requiring Max A from OT to maintain upright position. CGA toileting. Set-up UB dressing. CGA LB dressing. CGA grooming sinkfront. V/c's for safety and placement of RW. SpO2 WNL on 2L throughout tx. Occupational Therapy Goals 1. Pt. to perform dressing activities with SBA. 2. Pt. to perform showering activities with Min A. 3. Pt. to perform grooming activities with I. 4. Pt. to perform toileting activities with Mod I. 5. Pt. to increase Raymond Index of ADL score by 2 points. Patient's Goal
[2018-06-13] MEDS: CYCLOBENZAPRINE HCL 10 MG TAB PO SCH (13:20)
--- NOTE | 2018-06-13 14:01 | NUR ---
Physical Therapy Impression Pt requires SBA to stand from the chair and wheelchair and CGA/SBA to ambulate 120' with RW. SO2 maintained >88% on 2 L O2. Discussed Pt's plans for DC. Pt is currently unsure of DC destination. Physical Therapy Goals 1. Mod I bed mobility. 2. Mod I transfers. 3. Mod I gait x 150' with appropriate assistive device. 4. Ascend/descend stairs appropriate for discharge destination with SBA. Patient's Goals
[2018-06-13 16:30] VITALS: BP 138/80
[2018-06-13] MEDS: ACETAMINOPHEN 325 MG TAB PO PRN (17:44)
[2018-06-13] MEDS: MONTELUKAST SODIUM 10 MG TAB PO SCH (20:47)
[2018-06-13] MEDS: CETIRIZINE HCL 10 MG TAB PO SCH (20:47)
[2018-06-13] MEDS: GABAPENTIN 300 MG CAP PO SCH (20:47)
[2018-06-13] MEDS: METOPROLOL SUCC XL 25 MG TABCR PO SCH (20:47)
[2018-06-14] MEDS: TIOTROPIUM BROM INH 18 MCG/CAP INH SCH (05:34)
[2018-06-14] MEDS: BUDESO/FORMOT 160/4.5 MCG 6 GM INH SCH ×2 (05:34→17:55)
[2018-06-14 08:30] VITALS: BP 146/92
[2018-06-14] MEDS: LACTOBACILLUS ACIDOPHILUS TAB PO SCH ×3 (08:49→16:50)
[2018-06-14] MEDS: DOCUSATE SODIUM 100 MG CAP PO SCH ×2 (08:49→20:31)
[2018-06-14] MEDS: FEXOFENADINE HCL 60 MG TAB PO SCH (08:49)
[2018-06-14] MEDS: ACETAMINOPHEN 325 MG TAB PO PRN ×2 (08:49→16:53)
[2018-06-14] MEDS: clonazePAM 0.5 MG TAB PO SCH ×2 (08:49→20:31)
[2018-06-14] MEDS: VENLAFAXINE REG 37.5 MG TAB PO SCH (08:49)
[2018-06-14] MEDS: amLODIPine BESYL(*) 2.5 MG TAB PO SCH (08:50)
[2018-06-14] MEDS: POTASSIUM CHL 10% SF LIQ 20MEQ PO SCH (08:50)
[2018-06-14] MEDS: predniSONE 20 MG TAB PO SCH (08:50)
[2018-06-14] MEDS: ENOXAPARIN 30 MG/0.3 ML SYR SC SCH (08:50)
[2018-06-14] MEDS: POLYETHYLENE GLYCOL 17 GM PKT PO SCH (08:52)
--- NOTE | 2018-06-14 10:27 | NUR ---
Occupational Therapy Impression SBA supine to sit bed mobility. SBA toileting. SBA grooming standing sink front [id number]. SBA ambulation x150ft with RW. SpO2 WNL on 2L. Pt demonstrating improved tolerance for household and community mobility. Continue POC. Occupational Therapy Goals 1. Pt. to perform dressing activities with SBA. 2. Pt. to perform showering activities with Min A. 3. Pt. to perform grooming activities with I. 4. Pt. to perform toileting activities with Mod I. 5. Pt. to increase Raymond Index of ADL score by 2 points. Patient's Goal
[2018-06-14] MEDS: CYCLOBENZAPRINE HCL 10 MG TAB PO SCH (13:40)
--- NOTE | 2018-06-14 15:40 | NUR ---
Physical Therapy Impression Patient instructed in gait training with FWW throughout 3rd floor ~450 feet CGA with 3 seated rest break on 2L. Patients oxygen remained above 93% throughout ambulation. Physical Therapy Goals 1. Mod I bed mobility. 2. Mod I transfers. 3. Mod I gait x 150' with appropriate assistive device. 4. Ascend/descend stairs appropriate for discharge destination with SBA. Patient's Goals
[2018-06-14 17:10] VITALS: BP 140/69
[2018-06-14] MEDS: CETIRIZINE HCL 10 MG TAB PO SCH (20:31)
[2018-06-14] MEDS: METOPROLOL SUCC XL 25 MG TABCR PO SCH (20:31)
[2018-06-14] MEDS: GABAPENTIN 300 MG CAP PO SCH (20:31)
[2018-06-14] MEDS: MONTELUKAST SODIUM 10 MG TAB PO SCH (20:31)
[2018-06-15] MEDS: BUDESO/FORMOT 160/4.5 MCG 6 GM INH SCH ×2 (05:55→17:54)
[2018-06-15] MEDS: TIOTROPIUM BROM INH 18 MCG/CAP INH SCH (05:55)
[2018-06-15 07:30] VITALS: BP 138/86
[2018-06-15] MEDS: FEXOFENADINE HCL 60 MG TAB PO SCH (08:37)
[2018-06-15] MEDS: LACTOBACILLUS ACIDOPHILUS TAB PO SCH ×3 (08:37→16:45)
[2018-06-15] MEDS: DOCUSATE SODIUM 100 MG CAP PO SCH ×2 (08:37→20:49)
[2018-06-15] MEDS: POTASSIUM CHL 10% SF LIQ 20MEQ PO SCH (08:38)
[2018-06-15] MEDS: POLYETHYLENE GLYCOL 17 GM PKT PO SCH (08:38)
[2018-06-15] MEDS: VENLAFAXINE REG 37.5 MG TAB PO SCH (08:38)
[2018-06-15] MEDS: amLODIPine BESYL(*) 2.5 MG TAB PO SCH (08:38)
[2018-06-15] MEDS: clonazePAM 0.5 MG TAB PO SCH ×2 (08:38→20:48)
[2018-06-15] MEDS: predniSONE 10 MG TAB PO SCH (08:38)
[2018-06-15] MEDS: ENOXAPARIN 30 MG/0.3 ML SYR SC SCH (08:39)
--- NOTE | 2018-06-15 08:55 | NUR ---
Occupational Therapy Impression Mod (I) supine to sit bed mobility. Independent toileting. SBA grooming standing sinkfront [id number]. SBA ambulation [id number] with RW. SpO2 WNL on 2L. Pt demonstrating improved tolerance for household and community mobility. Continues to require Max A to manage O2 tubing with minimal carryover for safety. Will benefit from continued education and training with O2 tubing management. Energy conservation education. Pt reports desire to discharge home despite her children encouraging discharge to a different environment. Pt reports she would need more help with cleaning but otherwise has friends to assist with groceries. Her daughter assists with finances. She reports (I) with seated sponge baths as she is not able to use her claw foot tub. (I) with medication management and other ADLs. Will continue to address appropriate goals pending decision for discharge setting. Occupational Therapy Goals 1. Pt. to perform dressing activities with SBA. 2. Pt. to perform showering activities with Min A. 3. Pt. to perform grooming activities with I. 4. Pt. to perform toileting activities with Mod I. 5. Pt. to increase Raymond Index of ADL score by 2 points. Patient's Goal
[2018-06-15 10:00] VITALS: BP 119/78
[2018-06-15 10:03] VITALS: BP 139/89
[2018-06-15] MEDS: CYCLOBENZAPRINE HCL 10 MG TAB PO SCH (13:28)
[2018-06-15] MEDS: ACETAMINOPHEN 325 MG TAB PO PRN ×2 (13:37→20:49)
--- NOTE | 2018-06-15 14:11 | NUR ---
Physical Therapy Impression Pt demonstrates SBA for sit<>stand transfer, CGA/SBA to ambulate 200' with RW and 2 L O2 and SO2 maintaining >90%, HR in 100s. Pt reports dizziness during last 20' of ambulation but did not experience a loss of balance. Physical Therapy Goals 1. Mod I bed mobility. 2. Mod I transfers. 3. Mod I gait x 150' with appropriate assistive device. 4. Ascend/descend stairs appropriate for discharge destination with SBA. Patient's Goals
[2018-06-15 15:35] VITALS: BP 130/83
[2018-06-15] MEDS: CETIRIZINE HCL 10 MG TAB PO SCH (20:48)
[2018-06-15] MEDS: METOPROLOL SUCC XL 25 MG TABCR PO SCH (20:49)
[2018-06-15] MEDS: GABAPENTIN 300 MG CAP PO SCH (20:49)
[2018-06-15] MEDS: MONTELUKAST SODIUM 10 MG TAB PO SCH (20:49)
[2018-06-16] MEDS: BUDESO/FORMOT 160/4.5 MCG 6 GM INH SCH ×2 (06:08→18:08)
[2018-06-16] MEDS: TIOTROPIUM BROM INH 18 MCG/CAP INH SCH (06:08)
[2018-06-16 07:42] VITALS: BP 145/77
[2018-06-16] MEDS: POLYETHYLENE GLYCOL 17 GM PKT PO SCH (09:00)
[2018-06-16] MEDS: predniSONE 10 MG TAB PO SCH (09:44)
[2018-06-16] MEDS: ENOXAPARIN 30 MG/0.3 ML SYR SC SCH (09:44)
[2018-06-16] MEDS: VENLAFAXINE REG 37.5 MG TAB PO SCH (09:44)
[2018-06-16] MEDS: ACETAMINOPHEN 325 MG TAB PO PRN ×3 (09:44→21:38)
[2018-06-16] MEDS: LACTOBACILLUS ACIDOPHILUS TAB PO SCH ×3 (09:44→17:27)
[2018-06-16] MEDS: POTASSIUM CHL 10% SF LIQ 20MEQ PO SCH (09:44)
[2018-06-16] MEDS: amLODIPine BESYL(*) 2.5 MG TAB PO SCH (09:44)
[2018-06-16] MEDS: DOCUSATE SODIUM 100 MG CAP PO SCH ×2 (09:44→21:38)
[2018-06-16] MEDS: FEXOFENADINE HCL 60 MG TAB PO SCH (09:45)
[2018-06-16] MEDS: clonazePAM 0.5 MG TAB PO SCH ×2 (09:45→21:37)
[2018-06-16] MEDS: CYCLOBENZAPRINE HCL 10 MG TAB PO SCH (13:25)
--- NOTE | 2018-06-16 15:53 | NUR ---
Patient reported to me that she got up OOB to place a card on her nightstand and got right back to bed. She also reported that she felt dizzy when she got OOB. I instructed her to use the call light anytime she wants to get OOB. I explained the rationale for this (her safety). Pt. verbalized understanding.
[2018-06-16 16:30] VITALS: BP 120/70
[2018-06-16 21:36] VITALS: BP 142/92
[2018-06-16] MEDS: GABAPENTIN 300 MG CAP PO SCH (21:37)
[2018-06-16] MEDS: METOPROLOL SUCC XL 25 MG TABCR PO SCH (21:37)
[2018-06-16] MEDS: CETIRIZINE HCL 10 MG TAB PO SCH (21:37)
[2018-06-16] MEDS: MONTELUKAST SODIUM 10 MG TAB PO SCH (21:38)
[2018-06-17] MEDS: TIOTROPIUM BROM INH 18 MCG/CAP INH SCH (05:54)
[2018-06-17] MEDS: BUDESO/FORMOT 160/4.5 MCG 6 GM INH SCH ×2 (05:55→17:06)
[2018-06-17 07:50] VITALS: BP 136/83
[2018-06-17] MEDS: ACETAMINOPHEN 325 MG TAB PO PRN ×2 (08:02→21:34)
[2018-06-17] MEDS: ENOXAPARIN 30 MG/0.3 ML SYR SC SCH (09:07)
[2018-06-17] MEDS: POTASSIUM CHL 10% SF LIQ 20MEQ PO SCH (09:07)
[2018-06-17] MEDS: FEXOFENADINE HCL 60 MG TAB PO SCH (09:07)
[2018-06-17] MEDS: predniSONE 10 MG TAB PO SCH (09:07)
[2018-06-17] MEDS: VENLAFAXINE REG 37.5 MG TAB PO SCH (09:08)
[2018-06-17] MEDS: DOCUSATE SODIUM 100 MG CAP PO SCH ×2 (09:08→21:34)
[2018-06-17] MEDS: clonazePAM 0.5 MG TAB PO SCH ×2 (09:08→21:34)
[2018-06-17] MEDS: POLYETHYLENE GLYCOL 17 GM PKT PO SCH (09:08)
[2018-06-17] MEDS: LACTOBACILLUS ACIDOPHILUS TAB PO SCH ×3 (09:08→17:20)
[2018-06-17] MEDS: amLODIPine BESYL(*) 2.5 MG TAB PO SCH (09:08)
[2018-06-17] MEDS: CYCLOBENZAPRINE HCL 10 MG TAB PO SCH (14:17)
[2018-06-17 16:50] VITALS: BP 148/88
[2018-06-17 20:10] VITALS: BP 115/70
[2018-06-17] MEDS: MONTELUKAST SODIUM 10 MG TAB PO SCH (21:34)
[2018-06-17] MEDS: CETIRIZINE HCL 10 MG TAB PO SCH (21:34)
[2018-06-17] MEDS: METOPROLOL SUCC XL 25 MG TABCR PO SCH (21:34)
[2018-06-17] MEDS: GABAPENTIN 300 MG CAP PO SCH (21:34)
[2018-06-18] MEDS: BUDESO/FORMOT 160/4.5 MCG 6 GM INH SCH ×2 (05:45→16:56)
[2018-06-18] MEDS: TIOTROPIUM BROM INH 18 MCG/CAP INH SCH (05:46)
[2018-06-18 07:55] VITALS: BP 141/89
[2018-06-18] MEDS: POLYETHYLENE GLYCOL 17 GM PKT PO SCH (09:06)
[2018-06-18] MEDS: ENOXAPARIN 30 MG/0.3 ML SYR SC SCH (09:07)
[2018-06-18] MEDS: DOCUSATE SODIUM 100 MG CAP PO SCH ×2 (09:08→21:21)
[2018-06-18] MEDS: predniSONE 5 MG TAB PO SCH (09:08)
[2018-06-18] MEDS: FEXOFENADINE HCL 60 MG TAB PO SCH (09:08)
[2018-06-18] MEDS: clonazePAM 0.5 MG TAB PO SCH ×2 (09:08→21:20)
[2018-06-18] MEDS: LACTOBACILLUS ACIDOPHILUS TAB PO SCH ×3 (09:08→17:36)
[2018-06-18] MEDS: POTASSIUM CHL 10% SF LIQ 20MEQ PO SCH (09:08)
[2018-06-18] MEDS: VENLAFAXINE REG 37.5 MG TAB PO SCH (09:08)
[2018-06-18] MEDS: amLODIPine BESYL(*) 2.5 MG TAB PO SCH (09:08)
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
[2018-06-18] MEDS: CYCLOBENZAPRINE HCL 10 MG TAB PO SCH (13:35)
--- NOTE | 2018-06-18 15:43 | NUR ---
Occupational Therapy Impression Independent bed mobility. Independent UB/LB dressing. Independent toileting task. Mod (I) simulated light meal prep task. No loss of balance. SBA ambulation 1d863yl with RW. SpO2 WNL on 1L. Min A for O2 tubing management. Continue POC. Occupational Therapy Goals 1. Pt. to perform dressing activities with SBA. 2. Pt. to perform showering activities with Min A. 3. Pt. to perform grooming activities with I. 4. Pt. to perform toileting activities with Mod I. 5. Pt. to increase Raymond Index of ADL score by 2 points. Patient's Goal
[2018-06-18 16:15] VITALS: BP 132/60
--- NOTE | 2018-06-18 16:45 | NUR ---
Physical Therapy Impression Attempted to see Pt at 1141 during which Pt politely declined due to anxiety and just returning from walking to the bathroom. Attempted again at 1332 at which time Pt was eating. Physical Therapy Goals 1. Mod I bed mobility. 2. Mod I transfers. 3. Mod I gait x 150' with appropriate assistive device. 4. Ascend/descend stairs appropriate for discharge destination with SBA. Patient's Goals
--- NOTE | 2018-06-18 17:50 | NUR ---
Dizziness Pt c/o dizziness at 1150 and 1445 hours and pt tearful each time. At 1150, BP 146/92, heart rate 104. Pt admitted she hasn't been drinking fluids. Encouraged to drink more fluids. Pt states this happens to her at home and she gets very anxious. Will continue to monitor.
[2018-06-18] MEDS: ACETAMINOPHEN 325 MG TAB PO PRN ×2 (18:11→21:21)
[2018-06-18 21:00] VITALS: BP 147/90
[2018-06-18] MEDS: GABAPENTIN 300 MG CAP PO SCH (21:21)
[2018-06-18] MEDS: CETIRIZINE HCL 10 MG TAB PO SCH (21:21)
[2018-06-18] MEDS: MONTELUKAST SODIUM 10 MG TAB PO SCH (21:21)
[2018-06-18] MEDS: METOPROLOL SUCC XL 25 MG TABCR PO SCH (21:21)
[2018-06-19] MEDS: TIOTROPIUM BROM INH 18 MCG/CAP INH SCH (06:04)
[2018-06-19] MEDS: BUDESO/FORMOT 160/4.5 MCG 6 GM INH SCH ×2 (06:05→17:37)
[2018-06-19 07:30] VITALS: BP 150/86
[2018-06-19] MEDS: FEXOFENADINE HCL 60 MG TAB PO SCH (09:12)
[2018-06-19] MEDS: clonazePAM 0.5 MG TAB PO SCH ×2 (09:12→20:28)
[2018-06-19] MEDS: LACTOBACILLUS ACIDOPHILUS TAB PO SCH ×3 (09:12→16:40)
[2018-06-19] MEDS: VENLAFAXINE REG 37.5 MG TAB PO SCH (09:12)
[2018-06-19] MEDS: amLODIPine BESYL(*) 2.5 MG TAB PO SCH (09:12)
[2018-06-19] MEDS: DOCUSATE SODIUM 100 MG CAP PO SCH ×2 (09:12→20:28)
[2018-06-19] MEDS: ENOXAPARIN 30 MG/0.3 ML SYR SC SCH (09:13)
[2018-06-19] MEDS: predniSONE 5 MG TAB PO SCH (09:13)
[2018-06-19] MEDS: POTASSIUM CHL 10% SF LIQ 20MEQ PO SCH (09:13)
[2018-06-19] MEDS: POLYETHYLENE GLYCOL 17 GM PKT PO SCH (09:25)
--- NOTE | 2018-06-19 09:50 | NUR ---
Physical Therapy Impression Pt progressing well with functional mobility. SBA for transfers with RW, with PT cues to push up from surface. SBA for ambulation x200' with RW and w/c follow. PT instruction for stair negotiation and pt asc/desc 4 stairs with B) railing with SBA. Pt reporting dizziness of "3/10" throughout session, this was reported to RN. SpO2 and pulse rate WNL on 2L. Physical Therapy Goals 1. Mod I bed mobility. 2. Mod I transfers. 3. Mod I gait x 150' with appropriate assistive device. 4. Ascend/descend stairs appropriate for discharge destination with SBA. Patient's Goals
[2018-06-19] MEDS: CYCLOBENZAPRINE HCL 10 MG TAB PO SCH (13:19)
[2018-06-19] MEDS ORDERED: INFLUENZA VIRUS VAC 0.5ML SYR IM ONLY ONE (14:00)
[2018-06-19] MEDS ORDERED: PNEUMOC 13-VAL CONJ-DIP CRM/PF 0.5 ML SYR IM ONLY ONE (14:00)
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
[2018-06-19] MEDS: ACETAMINOPHEN 325 MG TAB PO PRN (15:40)
[2018-06-19] MEDS: CETIRIZINE HCL 10 MG TAB PO SCH (20:28)
[2018-06-19] MEDS: GABAPENTIN 300 MG CAP PO SCH (20:28)
[2018-06-19] MEDS: METOPROLOL SUCC XL 25 MG TABCR PO SCH (20:28)
[2018-06-19] MEDS: MONTELUKAST SODIUM 10 MG TAB PO SCH (20:28)
[2018-06-19 20:30] VITALS: BP 160/100
[2018-06-20] MEDS: TIOTROPIUM BROM INH 18 MCG/CAP INH SCH (05:35)
[2018-06-20] MEDS: BUDESO/FORMOT 160/4.5 MCG 6 GM INH SCH ×2 (05:35→17:49)
[2018-06-20 07:40] VITALS: BP 150/88
[2018-06-20] MEDS: predniSONE 5 MG TAB PO SCH (08:44)
[2018-06-20] MEDS: amLODIPine BESYL(*) 2.5 MG TAB PO SCH (08:44)
[2018-06-20] MEDS: DOCUSATE SODIUM 100 MG CAP PO SCH ×2 (08:44→21:05)
[2018-06-20] MEDS: FEXOFENADINE HCL 60 MG TAB PO SCH (08:44)
[2018-06-20] MEDS: VENLAFAXINE REG 37.5 MG TAB PO SCH (08:44)
[2018-06-20] MEDS: clonazePAM 0.5 MG TAB PO SCH ×2 (08:44→21:05)
[2018-06-20] MEDS: LACTOBACILLUS ACIDOPHILUS TAB PO SCH ×2 (08:44→13:21)
[2018-06-20] MEDS: ACETAMINOPHEN 325 MG TAB PO PRN ×2 (08:45→16:59)
[2018-06-20] MEDS: POTASSIUM CHL 10% SF LIQ 20MEQ PO SCH (08:45)
[2018-06-20] MEDS: POLYETHYLENE GLYCOL 17 GM PKT PO SCH (08:45)
[2018-06-20] MEDS: ENOXAPARIN 30 MG/0.3 ML SYR SC SCH (08:45)
--- NOTE | 2018-06-20 09:57 | NUR ---
Physical Therapy Impression Patient ambulated from her room to the gym with SBA with FWW patient then had a seated rest break. Patient ascended and descended 4 stairs with step to gait with CGA. Patient then ambulated throughout the hallways with SBA patient had normal silverio was steady and had good posture. Patient then toileted I and had SBA to get back into her bed. Patient needs cuing and increased time to think and process which way to turn to manage her oxygen line so that she does not get tangled up. Patients oxygen stayed above 91% on 2L throughout treatment. Physical Therapy Goals 1. Mod I bed mobility. 2. Mod I transfers. 3. Mod I gait x 150' with appropriate assistive device. 4. Ascend/descend stairs appropriate for discharge destination with SBA. Patient's Goals
--- NOTE | 2018-06-20 12:58 | NUR ---
Occupational Therapy Impression Tx session focused on O2 tubing management during functional mobility. Pt initially requiring Mod A to manage O2 tubing safely. As tx progressed, pt able to manage O2 tubing with minimal v/c's. Incorporating tight turns and increased distance. SpO2 WNL on 2L. Pt has met skilled OT goals. Plan for final visit tomorrow to ensure all needs have been addressed. Pt agreeable to plan. Occupational Therapy Goals 1. Pt. to perform dressing activities with SBA. 2. Pt. to perform showering activities with Min A. 3. Pt. to perform grooming activities with I. 4. Pt. to perform toileting activities with Mod I. 5. Pt. to increase Ramyond Index of ADL score by 2 points. Patient's Goal
[2018-06-20] MEDS: CYCLOBENZAPRINE HCL 10 MG TAB PO SCH (13:21)
--- NOTE | 2018-06-20 14:28 | Hospitalist Progress Note ---
Subjective Progress Notes Subjective She has no complaints this afternoon. She reports that she still has some episodes of anxiety, but feels they are improving. Patient Complains of: Cardiovascular: No: Chest Pain Respiratory: No: Shortness of Breath Physical Exam Vital Signs Date Time Temp Pulse Resp B/P (MAP) Pulse Ox O2 Delivery O2 Flow Rate FiO2 06/20/18 09:58 97 Nasal Cannula 1.5 06/20/18 07:40 97.8 66 10 150/88 (108) 06/19/18 10:12 94.0 Intake and Output 06/20/18 01:00 Intake Total 1430 ml Balance 1430 ml Intake Oral 1430 ml # Voids 7 # Bowel Movements 1 General Appearance: Alert, Awake, No Acute Distress, Afebrile Neuro: No Gross deficits Cardiovascular: Regular Rate and Rhythm Respiratory: No Respiratory Distress, Clear to Auscultation GI: Soft and Non-Tender Extremities: Warm, Perfused; No Edema Psych: Alert & Oriented X3, Appropriate Mood & Affect Assessment and Plan Problems: (1) COPD exacerbation Status: Acute Assessment & Plan: Clinically improved. Still with limited activity tolerance. She is on nebulizers and completed 5 days of azithromycin. She received long prednisone taper, which is now complete. (2) Anxiety Status: Acute Assessment & Plan: She does get anxious with her shortness of breath. Some of this was thought to be related to her inhaled beta agonists, which are now only being used as needed. She was also placed on clonazepam and Effexor. (3) Hypokalemia Status: Acute Assessment & Plan: She was started on oral potassium. Will check labs. (4) History of lumbar fusion Status: Resolved Assessment & Plan: She has some chronic back pain related to this and uses low dose Flexeril. TRANG AMAYA FOOT PIECE ASSEMBLER June 20, 2018 14:28
[2018-06-20 15:24] LABS: PLATELET COUNT, AUTOMATED 209 K/uL (150-450)
[2018-06-20 16:25] VITALS: BP 134/86
[2018-06-20] MEDS: MONTELUKAST SODIUM 10 MG TAB PO SCH (21:05)
[2018-06-20] MEDS: GABAPENTIN 300 MG CAP PO SCH (21:05)
[2018-06-20] MEDS: CETIRIZINE HCL 10 MG TAB PO SCH (21:05)
[2018-06-20] MEDS: METOPROLOL SUCC XL 25 MG TABCR PO SCH (21:05)
[2018-06-21] MEDS: TIOTROPIUM BROM INH 18 MCG/CAP INH SCH (05:25)
[2018-06-21] MEDS: BUDESO/FORMOT 160/4.5 MCG 6 GM INH SCH ×2 (05:25→18:00)
[2018-06-21 07:40] VITALS: BP 154/90
[2018-06-21] MEDS: clonazePAM 0.5 MG TAB PO SCH ×2 (09:15→21:29)
[2018-06-21] MEDS: FEXOFENADINE HCL 60 MG TAB PO SCH (09:16)
[2018-06-21] MEDS: amLODIPine BESYL(*) 2.5 MG TAB PO SCH (09:16)
[2018-06-21] MEDS: DOCUSATE SODIUM 100 MG CAP PO SCH ×2 (09:16→21:00)
[2018-06-21] MEDS: ENOXAPARIN 30 MG/0.3 ML SYR SC SCH (09:16)
[2018-06-21] MEDS: VENLAFAXINE REG 37.5 MG TAB PO SCH (09:16)
[2018-06-21] MEDS: LACTOBACILLUS ACIDOPHILUS TAB PO SCH (09:16)
[2018-06-21] MEDS: POTASSIUM CHL 10% SF LIQ 20MEQ PO SCH (09:17)
[2018-06-21] MEDS: POLYETHYLENE GLYCOL 17 GM PKT PO SCH (09:17)
--- NOTE | 2018-06-21 11:06 | NUR ---
Occupational Therapy Impression Pt alert and agreeable to OT tx. Discussed POC and pt has met all skilled OT goals. Pt reports no further questions/concerns/needs to address with OT at this time. Independent toileting. Independent grooming. SBA ambulation x150ft with RW. SBA standing dynamic/static balance challenges x3 minutes. Discharge skilled OT services. Occupational Therapy Goals 1. Pt. to perform dressing activities with SBA. 2. Pt. to perform showering activities with Min A. 3. Pt. to perform grooming activities with I. 4. Pt. to perform toileting activities with Mod I. 5. Pt. to increase Raymond Index of ADL score by 2 points. Patient's Goal
--- NOTE | 2018-06-21 11:11 | OT ECF NOTE ---
Type of Note: Discharge Note Primary Medical Diagnosis: COPD exacerbation Occupational Therapy Evaluation Date: 06-11-18 SUBJECTIVE: Prior Hospitalization: [facility] ICU/Medical floor from 06/02/18 to 06/11/18. Prior Level of Function: Declining in independence of past weeks/months. Prior Living Status: Pt. resided, alone in [place], [place]. Family and pt. are researching other d/c options. Community Services: None prior to admission. Home Accessibility: No home to d/c to at this time. Equipment Owned: Tub/shower chair Medical Complications/Past Medical History: Please refer to chart for details. Psychosocial Support: Supportive daughter/brother Pain Scale (0-10): 0/10 OBJECTIVE: Strength: MMT: Right Left Shoulder Flexion WFL WFL Elbow Flexion WFL WFL Wrist Extension WFL WFL Parimutuel Clerk WFL WFL (5= normal, 4= good, 3= fair, 2= poor, 1= trace) ROM: Both upper extremities, WFL Functional Transfer: Assistive Device: Front wheeled walker Transfer Ability: SBA ADL: Upper body dressing: Assistive device: None Upper body dressing ability: Independent Lower body dressing: Assistive device: None Lower body dressing ability: Independent Toileting: Assistive device: None Toileting ability: Independent Grooming/hygiene: Standing Assistive device: None Grooming ability: Independent Bathing: Assistive device: Bench Bathing ability: Independent with nursing. Pt has a bench available if needed. Took sponge baths at baseline. Standardized Assessment: Raymond Index of Activities of Daily Living- Pt. scored 11/20 on this Index upon initial evaluation. 20/20 upon discharge (06/21/18). ASSESSMENT: Pt. is a 67 year old female who was admitted to [facility] ICU on 06/02/18 with dx of COPD exacerbation. Pt. was residing in [place], [place], alone, however, family reports that this living situation is not suitable to return to. Pt. and family are researching options for places for pt. to live s/p d/c in [place] where more services would be available to assist patient. Pt. has met all skilled OT goals and plans to stay on ECF for discharging plan and continued PT services. Short Term Goals: 1. Pt. to perform dressing activities with SBA. GOAL MET. 2. Pt. to perform showering activities with Min A. GOAL MET. 3. Pt. to perform grooming activities with I.GOAL MET. 4. Pt. to perform toileting activities with Mod I.GOAL MET. 5. Pt. to increase Raymond Index of ADL score by 2 points.GOAL MET. Clinic Lead Goals: Safe d/c. Patient Goals: D/c with assistance Rehabilitation Prognosis: Fair Barriers to Discharge: Pt.'s prior living situation is not suitable to return to. PLAN: The patient will stay on ECF for discharge planning and until skilled PT goals are met. OT available should needs arise. Thank you for this referral. If you have any questions, concerns, or comments about this report or plan, please contact me at . Elly Jauregui MS, OTR/L Occupational Therapist LUCY
[2018-06-21] MEDS: ACETAMINOPHEN 325 MG TAB PO PRN (11:19)
--- NOTE | 2018-06-21 11:53 | NUR ---
Physical Therapy Impression PT provided cues for pt to utilize walker for all transfers, as pt transferred from chair to standing at side table with no AD, pt verbalized understanding. All transfers completed with SBA and RW. Pt with good tolerance to increased ambulation today with RW, with SBA provided. Emphasis on ambulation with O2 tubing management with multiple turns in kitchen setting. Pt completed 2 trials, and demonstrated improved safety and problem solving with second trial. Pt demonstrates good awareness of O2 tubing overall. ASc/desc 4 stairs with SBA and step to gait. Continue with POC. Physical Therapy Goals 1. Mod I bed mobility. 2. Mod I transfers. 3. Mod I gait x 150' with appropriate assistive device. 4. Ascend/descend stairs appropriate for discharge destination with SBA. Patient's Goals
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
--- NOTE | 2018-06-21 13:28 | NUR ---
OCCUPATIONAL THERAPY Dressing Assistance: Independent Dressing Aid Required: None Bathing Assistance: Mod (I) Bathing Equipment: Shower chair Home Assessment: Not Completed Feeding Assistance: Independent Feeding Specialized Equipment: None Toilet Use: Independent Verbalizes Needs: Yes Understands Precautions: Yes Cooperative: Yes Family Teaching: No Occupational Therapy Comment:
[2018-06-21] MEDS: CYCLOBENZAPRINE HCL 10 MG TAB PO SCH (13:33)
[2018-06-21 16:55] VITALS: BP 130/80
[2018-06-21] MEDS: MONTELUKAST SODIUM 10 MG TAB PO SCH (21:29)
[2018-06-21] MEDS: GABAPENTIN 300 MG CAP PO SCH (21:29)
[2018-06-21] MEDS: CETIRIZINE HCL 10 MG TAB PO SCH (21:30)
[2018-06-21] MEDS: METOPROLOL SUCC XL 25 MG TABCR PO SCH (21:30)
[2018-06-22] MEDS: ACETAMINOPHEN 325 MG TAB PO PRN ×2 (00:16→21:29)
[2018-06-22] MEDS: TIOTROPIUM BROM INH 18 MCG/CAP INH SCH (06:00)
[2018-06-22] MEDS: BUDESO/FORMOT 160/4.5 MCG 6 GM INH SCH ×2 (06:03→17:01)
[2018-06-22 09:44] VITALS: BP 132/80
[2018-06-22] MEDS: ENOXAPARIN 30 MG/0.3 ML SYR SC SCH (09:49)
[2018-06-22] MEDS: POLYETHYLENE GLYCOL 17 GM PKT PO SCH (09:50)
[2018-06-22] MEDS: VENLAFAXINE REG 37.5 MG TAB PO SCH (09:50)
[2018-06-22] MEDS: LACTOBACILLUS ACIDOPHILUS TAB PO SCH (09:50)
[2018-06-22] MEDS: amLODIPine BESYL(*) 2.5 MG TAB PO SCH (09:50)
[2018-06-22] MEDS: DOCUSATE SODIUM 100 MG CAP PO SCH ×2 (09:50→21:24)
[2018-06-22] MEDS: FEXOFENADINE HCL 60 MG TAB PO SCH (09:50)
[2018-06-22] MEDS: clonazePAM 0.5 MG TAB PO SCH ×2 (09:50→21:24)
[2018-06-22] MEDS: POTASSIUM CHL 10% SF LIQ 20MEQ PO SCH (09:51)
--- NOTE | 2018-06-22 10:46 | NUR ---
Physical Therapy Impression Pt ambulated with and without RW with good balance noted and good carry-over of O2 tubing management without verbal cueing. Pt reports she feels more secure with walker and plans to acquire one for home use. Discussed at length Pt's right to choose where she discharges and that this PT and entire rehab team will support her in her decision and that she has demonstrated functional mobility appropriate for DC to her home environment safely. Physical Therapy Goals 1. Mod I bed mobility. 2. Mod I transfers. 3. Mod I gait x 150' with appropriate assistive device. 4. Ascend/descend stairs appropriate for discharge destination with SBA. Patient's Goals
[2018-06-22] MEDS: CYCLOBENZAPRINE HCL 10 MG TAB PO SCH (14:35)
[2018-06-22 15:40] VITALS: BP 138/80
[2018-06-22] MEDS: MONTELUKAST SODIUM 10 MG TAB PO SCH (21:24)
[2018-06-22] MEDS: METOPROLOL SUCC XL 25 MG TABCR PO SCH (21:24)
[2018-06-22] MEDS: CETIRIZINE HCL 10 MG TAB PO SCH (21:24)
[2018-06-22] MEDS: GABAPENTIN 300 MG CAP PO SCH (21:24)
[2018-06-23] MEDS: TIOTROPIUM BROM INH 18 MCG/CAP INH SCH (05:55)
[2018-06-23] MEDS: BUDESO/FORMOT 160/4.5 MCG 6 GM INH SCH ×2 (05:55→18:20)
[2018-06-23 08:20] VITALS: BP 155/96
[2018-06-23] MEDS: DOCUSATE SODIUM 100 MG CAP PO SCH ×2 (09:30→21:17)
[2018-06-23] MEDS: VENLAFAXINE REG 37.5 MG TAB PO SCH (09:30)
[2018-06-23] MEDS: clonazePAM 0.5 MG TAB PO SCH ×2 (09:30→21:16)
[2018-06-23] MEDS: LACTOBACILLUS ACIDOPHILUS TAB PO SCH (09:30)
[2018-06-23] MEDS: amLODIPine BESYL(*) 2.5 MG TAB PO SCH (09:30)
[2018-06-23] MEDS: FEXOFENADINE HCL 60 MG TAB PO SCH (09:30)
[2018-06-23] MEDS: ENOXAPARIN 30 MG/0.3 ML SYR SC SCH (09:30)
[2018-06-23] MEDS: POTASSIUM CHL 10% SF LIQ 20MEQ PO SCH (09:31)
[2018-06-23] MEDS: POLYETHYLENE GLYCOL 17 GM PKT PO SCH (09:34)
[2018-06-23] MEDS: CYCLOBENZAPRINE HCL 10 MG TAB PO SCH (14:13)
[2018-06-23 15:15] VITALS: BP 114/84
[2018-06-23] MEDS: MONTELUKAST SODIUM 10 MG TAB PO SCH (21:16)
[2018-06-23] MEDS: METOPROLOL SUCC XL 25 MG TABCR PO SCH (21:16)
[2018-06-23] MEDS: CETIRIZINE HCL 10 MG TAB PO SCH (21:16)
[2018-06-23] MEDS: GABAPENTIN 300 MG CAP PO SCH (21:16)
[2018-06-23] MEDS: ACETAMINOPHEN 325 MG TAB PO PRN (21:17)
[2018-06-24] MEDS: TIOTROPIUM BROM INH 18 MCG/CAP INH SCH (05:36)
[2018-06-24] MEDS: BUDESO/FORMOT 160/4.5 MCG 6 GM INH SCH ×2 (05:37→18:11)
[2018-06-24 07:40] VITALS: BP 133/83
[2018-06-24] MEDS: POTASSIUM CHL 10% SF LIQ 20MEQ PO SCH (09:29)
[2018-06-24] MEDS: ENOXAPARIN 30 MG/0.3 ML SYR SC SCH (09:31)
[2018-06-24] MEDS: ACETAMINOPHEN 325 MG TAB PO PRN ×2 (09:31→22:01)
[2018-06-24] MEDS: DOCUSATE SODIUM 100 MG CAP PO SCH ×2 (09:32→22:01)
[2018-06-24] MEDS: LACTOBACILLUS ACIDOPHILUS TAB PO SCH (09:32)
[2018-06-24] MEDS: amLODIPine BESYL(*) 2.5 MG TAB PO SCH (09:32)
[2018-06-24] MEDS: VENLAFAXINE REG 37.5 MG TAB PO SCH (09:32)
[2018-06-24] MEDS: clonazePAM 0.5 MG TAB PO SCH ×2 (09:32→22:01)
[2018-06-24] MEDS: POLYETHYLENE GLYCOL 17 GM PKT PO SCH (09:32)
[2018-06-24] MEDS: FEXOFENADINE HCL 60 MG TAB PO SCH (09:32)
[2018-06-24] MEDS: CYCLOBENZAPRINE HCL 10 MG TAB PO SCH (14:52)
[2018-06-24 16:05] VITALS: BP 108/78
[2018-06-24 19:23] VITALS: BP 128/68
[2018-06-24] MEDS: MONTELUKAST SODIUM 10 MG TAB PO SCH (22:01)
[2018-06-24] MEDS: METOPROLOL SUCC XL 25 MG TABCR PO SCH (22:01)
[2018-06-24] MEDS: CETIRIZINE HCL 10 MG TAB PO SCH (22:01)
[2018-06-24] MEDS: GABAPENTIN 300 MG CAP PO SCH (22:01)
[2018-06-25] MEDS: BUDESO/FORMOT 160/4.5 MCG 6 GM INH SCH ×2 (06:03→16:59)
[2018-06-25] MEDS: TIOTROPIUM BROM INH 18 MCG/CAP INH SCH (06:03)
[2018-06-25 07:30] VITALS: BP 142/86
[2018-06-25] MEDS: amLODIPine BESYL(*) 2.5 MG TAB PO SCH (08:29)
[2018-06-25] MEDS: FEXOFENADINE HCL 60 MG TAB PO SCH (08:29)
[2018-06-25] MEDS: LACTOBACILLUS ACIDOPHILUS TAB PO SCH (08:29)
[2018-06-25] MEDS: VENLAFAXINE REG 37.5 MG TAB PO SCH (08:29)
[2018-06-25] MEDS: POLYETHYLENE GLYCOL 17 GM PKT PO SCH (08:30)
[2018-06-25] MEDS: ENOXAPARIN 30 MG/0.3 ML SYR SC SCH (08:30)
[2018-06-25] MEDS: POTASSIUM CHL 10% SF LIQ 20MEQ PO SCH (08:30)
[2018-06-25] MEDS: DOCUSATE SODIUM 100 MG CAP PO SCH ×2 (08:30→21:56)
[2018-06-25] MEDS: ACETAMINOPHEN 325 MG TAB PO PRN (09:29)
[2018-06-25] MEDS: clonazePAM 0.5 MG TAB PO SCH ×2 (09:30→21:55)
--- NOTE | 2018-06-25 12:09 | NUR ---
Physical Therapy Impression Pt has met PT goals and is appropriate for DC when medically ready. Pt reports no mobility concerns at this time. Recommend Pt have a walker for home use, Pt verbalizes understanding and will be getting a walker. Physical Therapy Goals 1. Mod I bed mobility. 2. Mod I transfers. 3. Mod I gait x 150' with appropriate assistive device. 4. Ascend/descend stairs appropriate for discharge destination with SBA. Patient's Goals
[2018-06-25] MEDS: CYCLOBENZAPRINE HCL 10 MG TAB PO SCH (14:00)
[2018-06-25 21:20] VITALS: BP 110/80
[2018-06-25] MEDS: CETIRIZINE HCL 10 MG TAB PO SCH (21:55)
[2018-06-25] MEDS: MONTELUKAST SODIUM 10 MG TAB PO SCH (21:55)
[2018-06-25] MEDS: METOPROLOL SUCC XL 25 MG TABCR PO SCH (21:55)
[2018-06-25] MEDS: GABAPENTIN 300 MG CAP PO SCH (21:56)
[2018-06-26] MEDS: TIOTROPIUM BROM INH 18 MCG/CAP INH SCH (06:06)
[2018-06-26] MEDS: BUDESO/FORMOT 160/4.5 MCG 6 GM INH SCH ×2 (06:06→17:02)
[2018-06-26 07:35] VITALS: BP 147/94
[2018-06-26] MEDS: ENOXAPARIN 30 MG/0.3 ML SYR SC SCH (09:01)
[2018-06-26] MEDS: POLYETHYLENE GLYCOL 17 GM PKT PO SCH (09:01)
[2018-06-26] MEDS: POTASSIUM CHL 10% SF LIQ 20MEQ PO SCH (09:01)
[2018-06-26] MEDS: clonazePAM 0.5 MG TAB PO SCH ×2 (09:02→21:28)
[2018-06-26] MEDS: FEXOFENADINE HCL 60 MG TAB PO SCH (09:02)
[2018-06-26] MEDS: amLODIPine BESYL(*) 2.5 MG TAB PO SCH (09:02)
[2018-06-26] MEDS: LACTOBACILLUS ACIDOPHILUS TAB PO SCH (09:02)
[2018-06-26] MEDS: VENLAFAXINE REG 37.5 MG TAB PO SCH (09:02)
[2018-06-26] MEDS: DOCUSATE SODIUM 100 MG CAP PO SCH ×2 (09:02→20:34)
--- NOTE | 2018-06-26 09:11 | PT ECF NOTE ---
Type of Note: Discharge Summary Primary Medical Diagnosis: COPD exacerbation, acute on chronic respiratory failure Physical Therapy Evaluation Date: 06/11/18 SUBJECTIVE: Prior Hospitalization: [facility] 06/02- Prior Level of Function: Pt was declining functionally prior to hospital admission stating her daughter had moved in the help and she was no longer able to walk across the street. Prior Living Status: Pt lived alone in [place], [place] and was receiving help with IADLs from her daughter Community Services: none reported Home Accessibility: Pt will not be moving back to her home in [place]. Pt currently does not have a discharge location but states her other daughter is looking into assisted living Equipment Owned: Pt reports having a shower chair, no walking aids Medical Complications/Past Medical History: Please see Network Psychosocial Support: Pt has supportive family Pain Scale (0-10): Pt denies pain. OBJECTIVE: Bed Mobility: Independent Transfers: Independent Gait: Mod I with RW x 1000' Stairs: Mod I with rail x 4 steps ASSESSMENT: Pt has met PT goals and is appropriate for DC when medically ready. Problem List/Current Limitations: Decreased activity tolerance, Decreased strength, Generalized weakness Short Term Goals: 1. Mod I bed mobility. 2. Mod I transfers. 3. Mod I gait x 150' with appropriate assistive device. 4. Ascend/descend stairs appropriate for discharge destination with SBA. Water Technician Goals: Discharge to least restrictive environment. Patient Goals: Get stronger and "walk around" Rehabilitation Prognosis: Fair Barriers for Discharge: Pt currently does not have a discharge destination. PLAN: Discharge. Thank you for this referral. If you have any questions, concerns, or comments about this report or plan, please contact me at . Joan Miranda, PT, DPT, GCS MTDD
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
--- NOTE | 2018-06-26 13:07 | Hospitalist Progress Note ---
Subjective Progress Notes Subjective She reports doing well. She is planning on possibly going to [facility] [place]. Physical Exam Vital Signs Date Time Temp Pulse Resp B/P (MAP) Pulse Ox O2 Delivery O2 Flow Rate FiO2 06/26/18 10:30 97 Nasal Cannula 1.5 06/26/18 07:35 98.0 72 18 147/94 (111) 06/25/18 11:03 94.0 Intake and Output 06/26/18 07:00 Intake Total 240 ml Balance 240 ml Intake Oral 240 ml # Voids 4 # Bowel Movements 1 General Appearance: Alert, Awake Cardiovascular: Other (Regular distant tones) Respiratory: Other (diminished breath sounds bilaterally/no rales/wheezes) Extremities: Other (degenerative changes both hands/fingers) Result Diagram: 06/26/18 1019 Assessment and Plan Problems: (1) COPD exacerbation Status: Acute Assessment & Plan: Clinically, she has improved significantly, but still has limited activity tolerance. She is on nebulizers and completed 5 days of azithromycin. She received long prednisone taper, which is now complete. The patient and family are working on appropriate living situation and sounds as if she may now be going to [facility]. (2) Anxiety Status: Acute Assessment & Plan: Improved. She does get anxious with her shortness of breath. Some of this was thought to be related to her inhaled beta agonists, which are now only being used as needed. She was also placed on clonazepam and Effexor. (3) Hypokalemia Status: Acute Assessment & Plan: Resolved. She was started on oral potassium. Will now stop the supplement. (4) History of lumbar fusion Status: Resolved Assessment & Plan: She has some chronic back pain related to this and uses low dose Flexeril. CATALINA MISTRY MD June 26, 2018 13:07
[2018-06-26] MEDS: CYCLOBENZAPRINE HCL 10 MG TAB PO SCH (14:30)
--- NOTE | 2018-06-26 15:36 | NUR ---
SW completed DC MDS with pt. C: 15, D: 10, E: no concerns, Q: referral made for [facility], and pt voicing that her son is making arrangements for her to move to [facility] [place] from [facility]. Pt has care conference this afternoon with son, will discuss further to determine if additional DC needs are necessary. JAS also offered mental health counseling, pt agreeable. JAS counseled pt from [phone] and pt agreeable to meeting with her again prior to DC. Pt discussed that her son has made arrangements for her to move to [facility], and though she knows this is best for her health, she is anxious of this major change and will miss her cats. Pt understands she has the right to make decisions and return to [place], but voices desire to try this and appease her son, stating "I know he worries and i don't want that for him." much of conversation revolved around fear and anxiety of this new chapter in her life and moving to a new place. JAS will plan to see pt once more prior to DC and will make referral for continued counseling at [facility], if pt does DC to there and has counselor available to her by residing in [place].
[2018-06-26 17:30] VITALS: BP 126/82
[2018-06-26 20:40] VITALS: BP 138/80
[2018-06-26] MEDS: CETIRIZINE HCL 10 MG TAB PO SCH (21:28)
[2018-06-26] MEDS: METOPROLOL SUCC XL 25 MG TABCR PO SCH (21:28)
[2018-06-26] MEDS: MONTELUKAST SODIUM 10 MG TAB PO SCH (21:28)
[2018-06-26] MEDS: GABAPENTIN 300 MG CAP PO SCH (21:28)
[2018-06-27] MEDS: BUDESO/FORMOT 160/4.5 MCG 6 GM INH SCH ×2 (06:12→17:19)
[2018-06-27] MEDS: TIOTROPIUM BROM INH 18 MCG/CAP INH SCH (06:12)
[2018-06-27 08:00] VITALS: BP 146/80
[2018-06-27] MEDS: DOCUSATE SODIUM 100 MG CAP PO SCH ×2 (09:00→20:37)
[2018-06-27] MEDS: POLYETHYLENE GLYCOL 17 GM PKT PO SCH (09:00)
[2018-06-27] MEDS: ENOXAPARIN 30 MG/0.3 ML SYR SC SCH (09:15)
[2018-06-27] MEDS: LACTOBACILLUS ACIDOPHILUS TAB PO SCH (09:15)
[2018-06-27] MEDS: amLODIPine BESYL(*) 2.5 MG TAB PO SCH (09:15)
[2018-06-27] MEDS: FEXOFENADINE HCL 60 MG TAB PO SCH (09:15)
[2018-06-27] MEDS: clonazePAM 0.5 MG TAB PO SCH ×2 (09:15→20:37)
[2018-06-27] MEDS: VENLAFAXINE REG 37.5 MG TAB PO SCH (09:15)
--- NOTE | 2018-06-27 10:00 | NUR ---
Mental Health counseling with pt, following conversation from pt's care conference yesterday afternoon. Met with pt from [phone]. Pt has been voicing desire to return to her home in [place] and previously voiced to SW feeling pressured by her children to move into [facility], and has also felt guilty like she was a burden on them. Pt reports she had a good conversation with her son and feels much better about moving over to [facility] [place] and is looking forward to this new "chapter in my life." Pt reports still having anxiety with this move and would like to continue working with a mental health counselor at [facility], referral sent to [facility] for in-home counseling and request made for female practitioner.
--- NOTE | 2018-06-27 11:18 | NUR ---
Home Oxygen Pt. already has established home oxygen and CPAP through [facility]. I talked to [facility], who stated that she has her Trilogy CPAP at home, oxygen concentrator, and portable oxygen at home, and that the [place]. I communicated this to the patient, and she stated that she will tell her daughter to bring those from [place] when she picks the patient up tomorrow.
[2018-06-27] MEDS: CYCLOBENZAPRINE HCL 10 MG TAB PO SCH (14:06)
[2018-06-27] MEDS ORDERED: VENL37.514 PO (14:42)
[2018-06-27] MEDS ORDERED: CYCL-277 PO (14:42)
[2018-06-27] MEDS ORDERED: TIO18R INH (14:42)
[2018-06-27] MEDS ORDERED: MONT10TA PO (14:42)
[2018-06-27] MEDS ORDERED: CLON-331 PO (14:42)
[2018-06-27] MEDS ORDERED: MELO-205 PO (14:42)
[2018-06-27] MEDS ORDERED: ALB18R INH (14:42)
[2018-06-27] MEDS ORDERED: BUDE10.2 INH (14:42)
[2018-06-27] MEDS ORDERED: GABA-549 PO (14:42)
[2018-06-27] MEDS ORDERED: AMLO2.5T78 PO (14:42)
[2018-06-27] MEDS ORDERED: METO25TA23 PO (14:42)
--- NOTE | 2018-06-27 15:03 | Hospitalist Depart ---
Discharge Summary Reason for Hosp/Final Diag: (1) COPD exacerbation Status: Acute Hospital Course & Plan: Clinically, she has improved significantly, but still has limited activity tolerance. She was on nebulizers and completed 5 days of azithromycin. She received long prednisone taper, which is now complete. The patient and family would like to be discharged to [facility]. She was given prescriptions for 30 days until she has appointment to establish care next month with Dr. Uribe. (2) Anxiety Status: Acute Hospital Course & Plan: Improved. She does get anxious with her shortness of breath. Some of this was thought to be related to her inhaled beta agonists, which are now only being used as needed. She was also placed on clonazepam and Effexor. (3) Hypokalemia Status: Acute Hospital Course & Plan: Resolved. She was started on oral potassium. Will now stop the supplement. (4) History of lumbar fusion Status: Resolved Hospital Course & Plan: She has some chronic back pain related to this and uses low dose Flexeril. Departure Latest Vital Signs Vital Signs 06/25/18 06/27/18 06/27/18 11:03 08:00 09:27 Temp 97.7 Pulse 78 Resp 10 B/P (MAP) 146/80 (102) Pulse Ox 98 O2 Delivery Nasal Cannula O2 Flow Rate 1.5 FiO2 94.0 Weight (Pounds): 69 Weight (Ounces): 11.0 Result Diagram: 06/26/18 1019 Condition: Improved Discharge: Assisted Living PT/OT Follow Up For: PT For Strengthening, PT Evaluation and Treat Discharge Instructions Home Meds Active Scripts Metoprolol Succinate (METOPROLOL SUCCINATE) 25 Mg Tab.er.24h, 25 MG PO HS, #30 TAB Prov:TRANG AMAYAP 06/27/18 Venlafaxine Hcl (VENLAFAXINE HCL) 37.5 Mg Tab, 37.5 MG PO QDAY, #30 TAB Prov:TRANG AMAYAP 06/27/18 Tiotropium [place] (SPIRIVA) 18 Mcg/Cap Inh, 1 PUFF INH QDAYR, #1 INH Prov:TRANG AMAYA 06/27/18 Clonazepam (CLONAZEPAM) 0.5 Mg Tablet, 0.5 MG PO BID, #60 TAB Prov:TRANG AMAYAP 06/27/18 Amlodipine Besylate (AMLODIPINE BESYLATE) 2.5 Mg Tablet, 2.5 MG PO QDAY, #30 TAB Prov:TRANG AMAYA [facility] 06/27/18 Cyclobenzaprine Hcl (CYCLOBENZAPRINE HCL) 5 Mg Tablet, 1 TAB PO QDAY PRN for MUSCLE SPASMS, #30 TAB Prov:TRANG AMAYA [facility] 06/27/18 Gabapentin (GABAPENTIN) 300 Mg Capsule, 1 TAB PO QHS, #30 CAPSULE Prov:TRANG AMAYA [facility] 06/27/18 Meloxicam (MELOXICAM) 7.5 Mg Tablet, 7.5 MG PO QDAY PRN for PAIN, #30 TAB Prov:TRANG AMAYA [facility] 06/27/18 Albuterol Sulfate (VENTOLIN HFA) 18 Gm Inh, 2 PUFF INH QID PRN for SHORTNESS OF BREATH, #1 INH Prov:TRANG AMAYA [facility] 06/27/18 Budesonide/Formoterol Fumarate (SYMBICORT 160-4.5 MCG INHALER) 10.2 Gm Inh, 2 PUFF INH BID, #1 INH Prov:TRANG AMAYA [facility] 06/27/18 Montelukast Sodium (SINGULAIR) 10 Mg Tablet, 1 TAB PO QHS, #30 TAB Prov:TRANG AMAYA [facility] 06/27/18 Reported Medications Fexofenadine Hcl (NICOLÁS ALLERGY) 180 Mg Tablet, 1 TAB PO QAM 07/26/17 Cetirizine Hcl (CETIRIZINE HCL) 10 Mg Tab.chew, 10 MG PO QHS, TAB.CHEW 07/26/17 Multivitamins W-Minerals (Multiple Vitamin) 1 Tab Tablet, 1 TAB PO DAILY, 0 Refills 10/02/09 Acetaminophen (Tylenol) 325 Mg Tab, 650 MG PO BID, 0 Refills 10/02/09 Diet: Regular Activity: As Tolerated Special Instructions: Follow-up with Dr. Bustillos on August 01 at 10:15. Copies to: HERNANDEZ URIBE MD ; Venous Thromboembolism Antithrombotics Is Pt On Any Antithrombotics?: No Dxap-rk-Adog Certification Face to Face Home Health Certification Patient's Primary Care Provider: Anahi Spencer [facility] Institutional Provider conducted the [id number] encounter. Electronic Undersigning Physician Certifies Home Health. I certify that the patient has been under my care and that I had a [id number] encounter that meets the physician [id number] encounter requirements with this patient. This patient is home-bound due to safety issues and continues to require assistance with ADL's. I certify that based on my findings, that Nursing, Aides and the following Home Health services are medically necessary: Medical Necessity: Rehab Date Face to Face Conducted: June 27, 2018 TRANG AMAYA June 27, 2018 15:03
[2018-06-27 16:16] VITALS: BP 144/76
[2018-06-27] MEDS: ACETAMINOPHEN 325 MG TAB PO PRN (18:59)
[2018-06-27] MEDS: MONTELUKAST SODIUM 10 MG TAB PO SCH (20:37)
[2018-06-27] MEDS: GABAPENTIN 300 MG CAP PO SCH (20:37)
[2018-06-27] MEDS: METOPROLOL SUCC XL 25 MG TABCR PO SCH (20:37)
[2018-06-27] MEDS: CETIRIZINE HCL 10 MG TAB PO SCH (20:37)
[2018-06-28] MEDS: BUDESO/FORMOT 160/4.5 MCG 6 GM INH SCH (05:32)
[2018-06-28] MEDS: TIOTROPIUM BROM INH 18 MCG/CAP INH SCH (05:32)
[2018-06-28 07:40] VITALS: BP 130/88
[2018-06-28] MEDS: DOCUSATE SODIUM 100 MG CAP PO SCH (09:00)
[2018-06-28] MEDS: POLYETHYLENE GLYCOL 17 GM PKT PO SCH (09:00)
[2018-06-28] MEDS: VENLAFAXINE REG 37.5 MG TAB PO SCH (09:10)
[2018-06-28] MEDS: LACTOBACILLUS ACIDOPHILUS TAB PO SCH (09:10)
[2018-06-28] MEDS: FEXOFENADINE HCL 60 MG TAB PO SCH (09:10)
[2018-06-28] MEDS: amLODIPine BESYL(*) 2.5 MG TAB PO SCH (09:10)
[2018-06-28] MEDS: ACETAMINOPHEN 325 MG TAB PO PRN (09:10)
[2018-06-28] MEDS: ENOXAPARIN 30 MG/0.3 ML SYR SC SCH (09:10)
[2018-06-28] MEDS: clonazePAM 0.5 MG TAB PO SCH (09:10)
--- NOTE | 2018-06-28 09:30 | NUR ---
SW was notified this am by Joaquim Hager RN that pt scored a 5/10 on her depression screen and was making commented that her suicidal plan would be to take pills, but reported to RN that she had no intention of hurting herself. SW spoke with pt to follow-up on this RN's concern. Pt reports her xiomy feels like "mush" today and is having another "off" day. Upon further discussion pt identified her sadness in not retuning to her home and community in and is anxious of the unknown of moving to [facility]. Pt voices that this move will be best for her health and will appease her children, which will alleviate much of her stress with their dynamics and constant arguing about her safety. After in-depth discussion of her concerns and emotions, SW asked pt about her comments made to RN about suicidal plans. Pt reports she was having a hard time coping with these upcoming changes and was feeling "out of control." Pt denies having any suicidal thoughts or thoughts of self-harm, and has been reading her Bible this morning "to stay positive." Pt reports she also spoke with her friend, Bhupinder, this am, which has uplifted her. Pt excited to see her daughter, Rosalind, when she arrives later this morning to get her moved to [facility]. SW made safety plan with pt should she start feeling thoughts of harm again and gave her mental health information available in [place] including suicide hotline contact information. Referral has been made to [facility] for continued counseling at [facility] and left VM to follow-up with them to see when they can make appt to see her after DC. Dtr Rosalind arrived to pt room around 1015. Rosalind had several questions regarding SWAL and SW will contact SHARLA Upton and relay this information to pt and Rosalind.
== END 2018-06-28 11:15 | disposition home or self-care (01) | DRG 192 ==
LOC: INTOOBSV 10:50 → SWB 10:50 → OBSVTOIN 10:50
PROVIDERS: ADMIT Internal Medicine; ATTEND Internal Medicine
DX: J44.1 Chronic obstructive pulmonary disease with (acute) exacerbation (principal); F41.9 Anxiety disorder, unspecified; E87.6 Hypokalemia; T48.6X5A Adverse effect of antiasthmatics, initial encounter; Y92.230 Patient room in hospital as the place of occurrence of the external cause; Z98.1 Arthrodesis status; Z23 Encounter for immunization
CPT/HCPCS: 36415; 82040; 82247; 82310; 82374; 82435; 82565; 82947; 84075; 84132; 84155; 84295; 84450; 84460; 84520; 85025; 90471; 90670; 90674; 94640; 94668; 97162; 97165; J1650; J3535; J7512; J7614

== ENCOUNTER → 2018-07-05 | Outpatient (CLI) | payer MEDICARE, MEDICAID ==
[2018-06-03 09:43] VITALS: BMI 15.4
[~2018-07-05] MED LIST changes: +AMLO2.5T78 PO; +CLON-331 PO; +METO25TA23 PO; +SOLI5TAB PO; +TIO18R INH; +VENL37.514 PO; +VENL75TA12 PO
[2018-07-05 15:16] LABS: LDL CHOLESTEROL 66 mg/dl
--- NOTE | 2018-07-05 17:19 | RADIOLOGY IMAGING REPORT ---
FACILITY: [facility] PATIENT NAME: Emma Henriquez : 1950 MR: [id number] V: [id number] EXAM DATE: ORDERING PHYSICIAN: CATERINA BRADFORD TECHNOLOGIST: Location: [facility] [place] Patient: Emma Henriquez : 1950 Visit/Account:[id number] Date of Sevice: 07/05/2018 XR HAND 3 VIEWS/MORE COMPARISON: None. HISTORY: Arthritis TECHNIQUE: 3 views right hand 3 views left hand RIGHT HAND FINDINGS: BONES: Diffusely demineralized. Mild radiocarpal narrowing. Advanced degenerative narrowing at the f irst CMC joint with partial bygy-tm-hapv apposition, mild subchondral sclerosis and moderate spurring . No discrete carpal erosions. Severe central erosions with moderate bony productive changes, first I P joint and second through fifth PIP joints in a row pattern, causing pencil in cup deformities, with moderate radial subluxation at the IP joint of the thumb, ulnar subluxation at the second, third and fourth PIP joints. Subluxations contribute to marked radial deviation of the IP joint of the thumb a nd ulnar deviation at the second through fourth IP joints. There is a moderate flexion deformity of t he fifth PIP joint. No appreciable metaphyseal periostitis and no appreciable ankylosis. SOFT TISSUES: Severe, relatively localized soft tissue swelling adjacent to each of the PIP joints. Mild triangular fibrocartilage complex calcifications. OTHER: Negative. LEFT HAND FINDINGS: BONES: Diffusely demineralized. Chronic appearing blunting of the ulnar styloid which could be relat ed to remote trauma or erosion. Mild proliferative changes, distal ulna at the distal radioulnar join t. Mild narrowing of the triscaphe joint with advanced degenerative narrowing, and moderate spurring and mild subchondral sclerosis of the first CMC joint. Severe central erosions, with moderate bony pr oductive changes at the second and third PIP joints, causing pencil in cup deformities which are best appreciated on the lateral view. Mild ulnar subluxation and moderate ulnar deviation at the second a nd third PIP joints. Mild central and marginal erosions, IP joint of the thumb with moderate prolifer ative proliferative changes and mild dorsal/radial subluxation contributing to radial deviation of th e thumb. No appreciable periostitis or ankylosis. SOFT TISSUES: Severe localized soft tissue swelling adjacent to the second and third PIP joints and the IP joint of the thumb. EFFUSION: None visible. OTHER: Negative. IMPRESSION: Severe arthritic changes in both hands, right worse than left as described detail above. The pattern seen is highly suggestive of psoriatic arthritis. Report Dictated By: Bob Carrillo at 07/05/2018 5:00 PM Report E-Signed By: Bob Carrillo at 07/05/2018 5:14 PM WSN:[id number]
--- NOTE | 2018-07-06 08:06 | RADIOLOGY IMAGING REPORT ---
FACILITY: [facility] [place] PATIENT NAME: Emma Henriquez : 1950 MR: [id number] V: [id number] EXAM DATE: ORDERING PHYSICIAN: CATERINA BRADFORD TECHNOLOGIST: Location: [facility] Patient: Emma Henriquez : 1950 Visit/Account:[id number] Date of Sevice: 07/05/2018 DEXA Scan Clinical history: Postmenopausal. Comparison: None. LEFT FEMORAL NECK: Bone mineral density (BMD) measured in the femoral neck region correlates with a T-score of -3.5 and a Z-score of -1.1 which is osteoporosis as defined by the World Health Organization. Bone mineral density (BMD) measured in the femoral neck region is 0.553 g/cm2. LEFT TOTAL HIP: Total hip bone mineral density (BMD) correlates with a T-score of -4.0 and a Z-score of -1.8 which is osteoporosis as defined by the World Health Organization. The corresponding risk of fracture in the hip is increased compared with a young adult reference [facility]. LEFT FOREARM: Bone mineral density (BMD) measured in the forearm correlates with a T-score of -5.1 and a Z-score of -3.3 which is osteoporosis as defined by the World Health Organization. The corresponding risk of f racture in the forearm is increased compared with a young adult reference population. IMPRESSION: 1. Left femoral neck: Osteoporosis. 2. Left femoral neck: Bone Mineral Density is 0.553 g/cm2. 3. Left left total hip: Osteoporosis. 4. Left forearm: Osteoporosis. FRAX WHO Fracture Risk Assessment Tool link: <http://www.shef.ac.uk/FRAX/tool.jsp?locationValue=9> PLEASE NOTE: 1) The World Health Organization defines low BMD as follows: T-score Normal > -1 Osteopenia < -1 and > -2.5 Osteoporosis < -2.5 without fractures Established osteoporosis < -2.5 with fractures 2) In general, you may wish to consider: Diagnosis Treatment Follow-up DEXA Normal BMD Prevention 2-3 years Osteopenia Prevention/therapy 1-2 years Osteoporosis Therapy Yearly 3) Fracture risk estimated from the T-score is more accurate for vertebral fractures (often spontane ous) than for hip fractures. Report Dictated By: Fareed Delgado MD at 07/06/2018 8:00 AM Report E-Signed By: Fareed Delgado MD at 07/06/2018 8:03 AM WSN:[id number]
== END ==
LOC: LAB 14:30
PROVIDERS: ATTEND Emergency Medicine
DX: M81.0 Age-related osteoporosis without current pathological fracture (principal); M25.541 Pain in joints of right hand; I10 Essential (primary) hypertension; F32.9 Major depressive disorder, single episode, unspecified; Z78.0 Asymptomatic menopausal state; M19.90 Unspecified osteoarthritis, unspecified site
CPT/HCPCS: 36415; 77080; 81001; 82306; 82465; 82607; 83718; 84478; 86140; 86200; 86430